=== PATIENT | female | born 1940 | race Caucasian/White ===

== ENCOUNTER → 2016-03-15 | Outpatient (CLI) | payer MEDICARE, BC ==
--- NOTE | 2016-03-18 08:40 | MM ---
Reason for exam: screening (asymptomatic). Last mammogram was performed 1 year and 1 month ago. History: Patient is postmenopausal and has history of other cancer at age 60. Family history of breast cancer in maternal cousin at age 60 and breast cancer in maternal aunt at age 60. Benign US left guided VAD of the left breast, June 23, 2008. Took estrogen for 10 years beginning at age 39. Physical Findings: A clinical breast exam by your physician is recommended on an annual basis and results should be correlated with mammographic findings. MG 3D Screening Mammo W/Cad Bilateral CC and MLO view(s) were taken. Prior study comparison: February 05, 2015, bilateral MG 3d diag mammo w/cad VIC. July 28, 2014, right breast MG diagnostic mammo RT w CAD. There are scattered fibroglandular densities. Finding: There are typically benign vascular, round calcifications in both breasts. Previous mammotome biopsy in the left breast. There is no discrete abnormality. ASSESSMENT: Benign, BI-RAD 2 RECOMMENDATION: Routine screening mammogram of both breasts in 1 year.
== END | disposition home or self-care (01) ==
LOC: RADMAMWWP 11:26
PROVIDERS: ATTEND Internal Medicine
DX: Z12.31 Encounter for screening mammogram for malignant neoplasm of breast (principal)
CPT/HCPCS: 77052; 77063; G0202

== ENCOUNTER → 2016-07-14 | Outpatient (CLI) | payer MEDICARE, BC ==
--- NOTE | 2016-07-14 20:20 | CT ---
EXAMINATION TYPE: CT soft tissue neck wo con DATE OF EXAM: 07/14/2016 7:43 PM COMPARISON: NONE HISTORY: Hypothyroid. Patient complains of dysphagia. CT DLP: 460.00 mGycm Automated exposure control for dose reduction was used. FINDINGS: Multiple axial sections were obtained from the top of the orbits to the pulmonary artery with no cont rast. There is no superior mediastinal adenopathy. There is normal branching pattern of the great vessels. There is no thyroid gland seen on the left side. There is a tiny thyroid gland remnant on the right s sarah. There is no parotid mass. The submandibular salivary glands are symmetric. There are a few anterior a nd posterior triangle cervical lymph nodes that measure up to 1 cm. There is no evidence of a pharyng eal mass. Epiglottis appears normal. There are some mild spondylotic changes in the cervical spine. S kull base is intact. There is no thickening of the prevertebral soft tissues. IMPRESSION: THERE ARE A FEW CERVICAL LYMPH NODES OF DOUBTFUL SIGNIFICANCE. SUBTOTAL THYROIDECTOMY. I DO NOT SEE A CAUSE FOR DYSPHAGIA.
== END | disposition home or self-care (01) ==
LOC: RADCTMAIN 19:25
PROVIDERS: ATTEND Internal Medicine
DX: E89.0 Postprocedural hypothyroidism (principal); N18.3 Chronic kidney disease, stage 3 (moderate); R32 Unspecified urinary incontinence; Z98.890 Other specified postprocedural states
CPT/HCPCS: 70490

== ENCOUNTER → 2017-04-11 | Outpatient (CLI) | payer MEDICARE, BC ==
--- NOTE | 2017-04-13 10:19 | MM ---
Reason for exam: screening (asymptomatic). Last mammogram was performed 1 year and 1 month ago. History: Patient is postmenopausal and has history of other cancer at age 60. Family history of breast cancer in maternal cousin at age 60 and breast cancer in maternal aunt at age 60. Benign US left guided VAD of the left breast, June 23, 2008. Took estrogen for 10 years beginning at age 39. Physical Findings: A clinical breast exam by your physician is recommended on an annual basis and results should be correlated with mammographic findings. MG 3D Screening Mammo W/Cad Bilateral CC and MLO view(s) were taken. Prior study comparison: March 15, 2016, bilateral MG 3d screening mammo w/cad. February 05, 2015, bilateral MG 3d diag mammo w/cad VIC. The breast tissue is heterogeneously dense. This may lower the sensitivity of mammography. Finding: There are typically benign vascular, dystrophic calcifications in both breasts. Previous mammotome biopsy in the left breast. There is no discrete abnormality. ASSESSMENT: Benign, BI-RAD 2 RECOMMENDATION: Routine screening mammogram of both breasts in 1 year.
== END | disposition home or self-care (01) ==
LOC: RADMAMWWP 08:42
PROVIDERS: ATTEND Internal Medicine
DX: Z12.31 Encounter for screening mammogram for malignant neoplasm of breast (principal)
CPT/HCPCS: 77063; 77067

== ENCOUNTER 2017-07-26 20:53 | Emergency (ER) | payer MEDICARE, BC ==
[2017-07-26] MEDS ORDERED: SODIUM CHLORIDE 0.9% 1,000 ML IV STA ×2 (21:14)
--- NOTE | 2017-07-26 21:18 | ED ---
Dizziness HPI - General Chief Complaint: Dizziness Stated Complaint: lightheaded Time Seen by Provider: 07/26/17 21:08 Source: patient Mode of arrival: ambulatory Limitations: no limitations - History of Present Illness Initial Comments: This 77-year-old white female presents with a complaint of some dizziness and presyncope with standing. She states that she is fine when lying but his symptoms only occur when she stands. This just started a few hours ago. She denies any other symptoms such as shortness of breath, chest pain, or fevers. She does relate that she was diagnosed with urinary tract infection and started Cipro 250 mg twice a day 2 days ago. Her urinary symptoms have resolved. She was having some mild suprapubic pain and dysuria but these symptoms are no longer present. She states that she had the episode of similar symptoms approximately 8 years ago with unknown cause. There is no leg pain or swelling. There is no abdominal pain. No other complaints or modifying factors. - Related Data Home Medications Medication Instructions Recorded Confirmed Calcium Carbonate/Vitamin D3 1 each PO DAILY 10/09/15 10/12/15 [Calcium 600-Vit D3 200 Tablet] Cholecalciferol [Vitamin D3] 2,000 unit PO DAILY 10/09/15 10/12/15 Levothyroxine Sodium [Synthroid] 25 mcg PO DAILY 10/09/15 10/12/15 Tolterodine ER [Detrol LA] 4 mg PO HS 10/09/15 10/12/15 Allergies Allergy/AdvReac Type Severity Reaction Status Date / Time Penicillins Allergy Rash/Hives Verified 07/26/17 21:00 Review of Systems ROS Statement: Those systems with pertinent positive or pertinent negative responses have been documented in the HPI. ROS Other: All systems not noted in ROS Statement are negative. Past Medical History Past Medical History: Cancer, Thyroid Disorder Additional Past Medical History / Comment(s): overactive bladder. skin ca History of Any Multi-Drug Resistant Organisms: None Reported Past Surgical History: Hysterectomy Additional Past Surgical History / Comment(s): 1/2 thyroidectomy. melanoma removed rt shoulder. rt wrist ganglion cyst removed. trigger thumb rt side. colonoscopy. BILAT CATARACT SX Past Anesthesia/Blood Transfusion Reactions: No Reported Reaction Past Psychological History: No Psychological Hx Reported Smoking Status: Never smoker Past Alcohol Use History: None Reported Past Drug Use History: None Reported - Past Family History Father Family Medical History: Cancer Additional Family Medical History / Comment(s): prostate Mother Family Medical History: Cancer Additional Family Medical History / Comment(s): colonoscopy General Exam - General Exam Comments Initial Comments: GENERAL: The patient is well nourished and well hydrated. VITAL SIGNS: Heart rate, blood pressure, respiratory rate reviewed as recorded in nurse's notes. EYES: Pupils are round and reactive. Extraocular movements are intact. No conjunctival / lid redness or swelling. ENT: No external evidence of injury, swelling, or ecchymosis. Airway is patent. Throat is clear. NECK: Nontender. No swelling or evidence of injury. No subcutaneous emphysema. Trachea is midline. No thyroid mass. HEART: Regular rate and rhythm. Good peripheral pulses. LUNGS/CHEST: Breath sounds clear and equal bilaterally. No rales, rhonchi, or wheezes. No ecchymosis, subcutaneous emphysema, or tenderness. ABDOMEN: Abdomen soft without tenderness. No palpable masses or organomegaly. No peritoneal signs. No abdominal wall swelling or ecchymosis. EXTREMITIES: No extremity tenderness. Normal muscle tone and function. No thoracolumbar tenderness. NEUROLOGIC: Sensation is grossly intact. Cranial nerve exam reveals face is symmetrical, tongue is midline, speech is clear. SKIN: No abrasions or ecchymosis is noted. No induration or masses noted. PSYCHIATRIC: Alert and oriented. Appropriate behavior and judgment. Limitations: no limitations Course Vital Signs 07/26/17 07/26/17 07/26/17 20:57 21:40 21:42 Temperature 97.5 F L Pulse Rate 78 Pulse Rate [ 77 76 Pulse Oximetery ] Respiratory 18 20 18 Rate Blood Pressure 157/75 Blood Pressure 162/78 [Right Arm Sitting] Blood Pressure 161/74 [Right Arm Standing] Blood Pressure 169/75 [Right Arm Supine] O2 Sat by Pulse 97 Oximetry 07/26/17 22:42 Temperature Pulse Rate 64 Pulse Rate [ Pulse Oximetery ] Respiratory 18 Rate Blood Pressure 147/83 Blood Pressure [Right Arm Sitting] Blood Pressure [Right Arm Standing] Blood Pressure [Right Arm Supine] O2 Sat by Pulse 97 Oximetry Medical Decision Making - Medical Decision Making The patient was seen and examined. All diagnostics were reviewed. An IV is started and she is hydrated. An EKG was done and shows a normal sinus rhythm at a rate of 78. There is no acute ST-T wave changes identified. The [place] intervals 164, QRS duration is 86, and the QTC intervals 437. The laboratory and urine are reviewed and are unremarkable. She did receive some Antivert as well. She is feeling significantly improved on recheck. The exact cause of her symptoms are not definitively determined as her orthostatic vital signs were very negative. She further does relate that the only time she was dizzy is when she stood up and the dizziness was not associated with head movement and she describes it as more of a presyncopal feeling. It is felt as though she might have been slightly dehydrated with her recent urinary tract infection. It appears that she is improved with fluids at this time. It is felt as though she stable for discharge and is instructed to drink plenty of fluids in the next several days. An ambulation trial was done and she is able to ambulate safely and states that her symptoms have significantly improved. - Lab Data Result diagrams: 07/26/17 21:24 07/26/17 21:24 Lab Results 07/26/17 07/26/17 07/26/17 Range/Units 21:24 21:24 23:02 WBC 6.2 (3.8-10.6) k/uL RBC 4.57 (3.80-5.40) m/uL Hgb 13.8 (11.4-16.0) gm/dL Hct 41.7 (34.0-46.0) % MCV 91.2 (80.0-100.0) fL MCH 30.2 (25.0-35.0) pg MCHC 33.1 (31.0-37.0) g/dL RDW 13.6 (11.5-15.5) % Plt Count 351 (150-450) k/uL Neutrophils % 44 % Lymphocytes % 41 % Monocytes % 9 % Eosinophils % 4 % Basophils % 1 % Neutrophils # 2.7 (1.3-7.7) k/uL Lymphocytes # 2.6 (1.0-4.8) k/uL Monocytes # 0.5 (0-1.0) k/uL Eosinophils # 0.2 (0-0.7) k/uL Basophils # 0.1 (0-0.2) k/uL Sodium 145 (137-145) mmol/L Potassium 4.3 (3.5-5.1) mmol/L Chloride 106 (98-107) mmol/L Carbon Dioxide 25 (22-30) mmol/L Anion Gap 14 mmol/L BUN 14 (7-17) mg/dL Creatinine 1.00 (0.52-1.04) mg/dL Est GFR (CKD-EPI)AfAm 64 (>60 ml/min/1.73 sqM) Est GFR (CKD-EPI)NonAf 55 (>60 ml/min/1.73 sqM) Glucose 82 (74-99) mg/dL Calcium 9.5 (8.4-10.2) mg/dL Total Bilirubin 0.4 (0.2-1.3) mg/dL AST 35 (14-36) U/L ALT 34 (9-52) U/L Alkaline Phosphatase 86 (38-126) U/L Total Protein 6.9 (6.3-8.2) g/dL Albumin 3.8 (3.5-5.0) g/dL Urine Color Light Yellow Urine Appearance Clear (Clear) Urine pH 5.0 (5.0-8.0) Ur Specific [place] 1.008 (1.001-1.035) Urine Protein Negative (Negative) Urine Glucose (UA) Negative (Negative) Urine Ketones Negative (Negative) Urine Blood Moderate H (Negative) Urine Nitrite Negative (Negative) Urine Bilirubin Negative (Negative) Urine Urobilinogen <2.0 (<2.0) mg/dL Ur Leukocyte Esterase Negative (Negative) Urine RBC 2 (0-5) /hpf Urine WBC 1 (0-5) /hpf Ur Squamous Epith Cells <1 (0-4) /hpf Disposition Clinical Impression: Orthostatic dizziness, Hypertension Disposition: HOME SELF-CARE Condition: Good Instructions: Dizziness (ED), Hypertension (ED) Is patient prescribed a controlled substance at d/c from ED?: No Referrals: Lei Ang MD [Primary Care Provider] - 1-2 days Time of Disposition: 00:07
[2017-07-26] MEDS ORDERED: MECLIZINE 12.5 MG TAB PO STA (21:43)
[2017-07-26 21:50] LABS: Basophils # (A) 0.1 k/uL (0-0.2); Basophils % (A) 1 %; Eosinophils # (A) 0.2 k/uL (0-0.7); Eosinophils % (A) 4 %; HCT 41.7 % (34.0-46.0); HGB 13.8 gm/dL (11.4-16.0); Lymphocytes # (A) 2.6 k/uL (1.0-4.8); Lymphocytes % (A) 41 %; MCH 30.2 pg (25.0-35.0); MCHC 33.1 g/dL (31.0-37.0); MCV 91.2 fL (80.0-100.0); Mean Platelet Volume 6.6; Monocytes # (A) 0.5 k/uL (0-1.0); Monocytes % (A) 9 %; Neutrophils # (A) 2.7 k/uL (1.3-7.7); Neutrophils % (A) 44 %; Platelet Count 351 k/uL (150-450); RBC 4.57 m/uL (3.80-5.40); RDW 13.6 % (11.5-15.5); WBC 6.2 k/uL (3.8-10.6)
[2017-07-26 22:09] LABS: Albumin 3.8 g/dL (3.5-5.0); Calcium 9.5 mg/dL (8.4-10.2); Potassium 4.3 mmol/L (3.5-5.1); Total Bilirubin 0.4 mg/dL (0.2-1.3); Total Protein 6.9 g/dL (6.3-8.2)
[2017-07-26 23:34] LABS: Appearance,Urine Clear (Clear); Bilirubin,Urine Negative (Negative); Blood,Urine Moderate (Negative); Color,Urine Light Yellow; Glucose,Urine (UA) Negative (Negative); Ketones,Urine Negative (Negative); Leukocyte Esterase,Urine Negative (Negative); Nitrite,Urine Negative (Negative); Protein,Urine Negative (Negative); RBC,Urine 2 /hpf (0-5); Specific Gravity,Urine 1.008 (1.001-1.035); Squamous Epithelial Cell,Urine <1 /hpf (0-4); Urobilinogen,Urine <2.0 mg/dL (<2.0); WBC,Urine 1 /hpf (0-5)
[2017-07-27 00:31] VITALS: BP 145/98; PULSE 75; RESP 20; TEMP 97.8
== END 2017-07-27 00:31 | disposition home or self-care (01) ==
LOC: EC 20:53
DX: I10 Essential (primary) hypertension (principal); R42 Dizziness and giddiness; E07.9 Disorder of thyroid, unspecified; N32.81 Overactive bladder; Z85.820 Personal history of malignant melanoma of skin; Z79.899 Other long term (current) drug therapy; Z88.0 Allergy status to penicillin
CPT/HCPCS: 36415; 80053; 81001; 85025; 93005; 96360; 96361; 99284

== ENCOUNTER → 2018-06-14 | Outpatient (CLI) | payer MEDICARE, BC ==
--- NOTE | 2018-06-15 09:03 | MM ---
Reason for exam: screening (asymptomatic). Last mammogram was performed 1 year and 2 months ago. History: Patient is postmenopausal and has history of other cancer at age 60. Family history of breast cancer in maternal cousin at age 60 and breast cancer in maternal aunt at age 60. Benign US left guided VAD of the left breast, June 23, 2008. Took estrogen for 10 years beginning at age 39. Physical Findings: A clinical breast exam by your physician is recommended on an annual basis and results should be correlated with mammographic findings. MG 3D Screening Mammo W/Cad Bilateral CC and MLO view(s) were taken. Prior study comparison: April 11, 2017, bilateral MG 3d screening mammo w/cad. March 15, 2016, bilateral MG 3d screening mammo w/cad. The breast tissue is heterogeneously dense. This may lower the sensitivity of mammography. Stable benign calcifications. New nodule upper outer right breast posterior third position. ASSESSMENT: Incomplete: need additional imaging evaluation, BI-RAD 0 RECOMMENDATION: Special view mammogram of the right breast. If lesion persists on supplemental views, image directed ultrasound is recommended. [facility] will attempt to contact patient to return for supplemental views and ultrasound if indicated.
== END | disposition home or self-care (01) ==
LOC: RADMAMWWP 11:10
PROVIDERS: ATTEND Internal Medicine
DX: Z12.31 Encounter for screening mammogram for malignant neoplasm of breast (principal)
CPT/HCPCS: 77063; 77067

== ENCOUNTER → 2018-06-17 | Outpatient (CLI) | payer MEDICARE, BC ==
--- NOTE | 2018-06-18 13:43 | MM ---
Reason for exam: additional evaluation requested from abnormal screening. Last mammogram was performed less than 1 month ago. History: Patient is postmenopausal and has history of other cancer at age 60. Family history of breast cancer in maternal cousin at age 60 and breast cancer in maternal aunt at age 60. Benign US left guided VAD of the left breast, June 23, 2008. Took estrogen for 10 years beginning at age 39. Physical Findings: Nurse did not find any significant physical abnormalities on exam. MG 3D Work Up W/Cad RT Spot compression CC, spot compression MLO, and LM view(s) were taken of the right breast. Prior study comparison: June 14, 2018, bilateral MG 3d screening mammo w/cad. April 11, 2017, bilateral MG 3d screening mammo w/cad. There are scattered fibroglandular densities. Finding: There is a 4 mm equal density (isodense) mass in the right breast. These results were verbally communicated with the patient and result sheet given to the patient on 06/17/18. ASSESSMENT: Incomplete: need additional imaging evaluation, BI-RAD 0 RECOMMENDATION: Ultrasound of the right breast.
--- NOTE | 2018-06-18 13:46 | USB ---
Reason for exam: additional evaluation requested from abnormal screening. History: Patient is postmenopausal and has history of other cancer at age 60. Family history of breast cancer in maternal cousin at age 60 and breast cancer in maternal aunt at age 60. Benign US left guided VAD of the left breast, June 23, 2008. Took estrogen for 10 years beginning at age 39. US Breast Workup Limited RT Right limited breast ultrasound including focal area of concern, retroareolar and axilla demonstrates a 0.7 x 0.2 x 0.5cm cystic lesion at 11 o'clock nipple and a 0.5 x 0.4 x 0.5cm solid lesion at 1 o'clock for which a biopsy is recommended. These results were verbally communicated with the patient and result sheet given to the patient on 06/17/18. ASSESSMENT: Suspicious, BI-RAD 4 RECOMMENDATION: Ultrasound core biopsy of the right breast. Called Dr. Ang with mammographic findings and has scheduled an appointment for the patient for 07/02/18 at 12:[address] Nolen. Biopsy scheduled for 06/28/18 at 10:00. PRELIMINARY REPORT CALLED AND FAXED TO DR. NOLEN ON 06/18/18.
== END | disposition home or self-care (01) ==
LOC: RADMAMWWP 13:33
PROVIDERS: ATTEND Internal Medicine
DX: R92.8 Other abnormal and inconclusive findings on diagnostic imaging of breast (principal)
CPT/HCPCS: 77065; 76642; G0279; 77061

== ENCOUNTER → 2018-06-28 | Day surgery (SDC) | payer MEDICARE, BC ==
[2018-06-28 09:32] VITALS: RESP 18; TEMP 98; BMI 27.0
[2018-06-28 14:29] VITALS: BP 128/78; PULSE 80
--- NOTE | 2018-06-28 16:28 | USB ---
EXAMINATION TYPE: US biopsy breast VAD RT DATE OF EXAM: 06/28/2018 CLINICAL HISTORY: R92.8 Abnormal Mammogram. TECHNIQUE: Ultrasound guided core biopsy of right breast. COMPARISON: NONE FINDINGS: The procedure of ultrasound guided core biopsy was explained to the patient. Benefits, alt ernatives, and risks were discussed. An informed consent was then obtained. A timeout was performed. The patient was placed in supine positioning for imaging and for the procedure. The overlying skin w as prepped and draped in usual sterile fashion. Lidocaine buffered with bicarbonate was used as anes thetic into the skin and subcutaneous tissue up to area of concern in the right breast. A maximo was m yudith with surgical scalpel. Under ultrasound guidance, a 12-gauge vacuum assisted biopsy gun device was used to obtain 5 core rudy ples. Following this, a biopsy clip was left in lesion. The patient tolerated the procedure well without any immediate complication. The patient was kept in the radiology department for short stay after the procedure and then discharged home in stable condi tion. Post procedure mammogram was obtained. A surgical marker is within the posterior right 12:00 on the m ammogram. IMPRESSION: 1. Successful ultrasound-guided core biopsy right breast. Recommendations: 1. Recommendations are pending pathology results.
== END ==
LOC: RADUSWWP 09:04
PROVIDERS: ATTEND Internal Medicine
DX: N64.89 Other specified disorders of breast (principal)
CPT/HCPCS: 88305; 88342; 88341; 77065; 19083; A4648; J2001

== ENCOUNTER → 2018-07-02 | Outpatient (CLI) | payer MEDICARE, BC ==
[2018-07-02 14:12] VITALS: BP 176/74; PULSE 92; RESP 16; TEMP 97.7; BMI 27.4
--- NOTE | 2018-07-02 14:47 | P.GSHP ---
History of Present Illness H&P Date: 07/02/18 Chief Complaint: ultrasound biopsy 78-year-old white female who presents for evaluation following an ultrasound core biopsy of an area identified in the right breast. The patient had a routine screening mammogram performed on 4818. On this film there was a new nodular upper outer right breast nodule identified. She was recommended to undergo additional radiographs of this site and following additional radiographs and an ultrasound and ultrasound-guided core biopsy was recommended. The ultrasound core biopsy was performed and [id number]. Results of this revealed a microscopic focus of atypical ductal epithelium pending consultation at [facility]. The patient does not feel anything of concern in her breast. She has no history of any nipple discharge or skin changes of concern. She has no history of any trauma or infection in her breast. She had a left breast biopsy in the past which was benign. Family History; maternal aunt: breast cancer maternal cousin: breast cancer mother: colon cancer father: prostate cancer patient: melanoma Hormonal History: menarche: 13 : breast fed: none, first born at 19 menopause: hysterectomy at 46, took ovaries, done for bleeding BCP: none hormones: 10 years after hysterectomy (estrogen) Past Surgical History: 1. melanoma on back 2. hysterectomy 3. thyroid resection 4. thumb surgery Past Medical History: none Social History: smoke: none alcohol: none drugs: none - Constitutional Constitutional: Denies chills, Denies fever - EENT Eyes: denies blurred vision, denies pain Ears: deny: decreased hearing, tinnitus Ears, nose, mouth and throat: Denies headache, Denies sore throat - Breasts Breasts: bilateral: as per HPI - Cardiovascular Cardiovascular: Denies chest pain, Denies shortness of breath - Respiratory Respiratory: Denies cough, Denies 7 - Gastrointestinal Comment: colonoscopy done last year [place] Gastrointestinal: Denies abdominal pain, Denies diarrhea, Denies nausea, Denies vomiting - Genitourinary (Female) Genitourinary: Denies dysuria, Denies hematuria - Menstruation Menstruation: Reports post hysterectomy - Musculoskeletal Musculoskeletal: Denies myalgias - Integumentary Integumentary: Denies pruritus, Denies rash - Neurological Neurological: Denies numbness, Denies weakness - Psychiatric Psychiatric: Denies anxiety, Denies depression - Endocrine Endocrine: Denies fatigue, Denies weight change - Hematologic/Lymphatic Comment: none - Allergic/Immunologic Allergic/Immunologic: Reports seasonal allergies Past Medical History Past Medical History: Cancer, Thyroid Disorder Additional Past Medical History / Comment(s): overactive bladder. skin ca History of Any Multi-Drug Resistant Organisms: None Reported Past Surgical History: Hysterectomy Additional Past Surgical History / Comment(s): 1/2 thyroidectomy. melanoma removed rt shoulder. rt wrist ganglion cyst removed. trigger thumb rt side. colonoscopy. BILAT CATARACT SX Past Anesthesia/Blood Transfusion Reactions: No Reported Reaction Past Psychological History: No Psychological Hx Reported Smoking Status: Never smoker Past Alcohol Use History: None Reported Past Drug Use History: None Reported - Past Family History Father Family Medical History: Cancer Additional Family Medical History / Comment(s): prostate Mother Family Medical History: Cancer Additional Family Medical History / Comment(s): colonoscopy. colon cancer Medications and Allergies Home Medications Medication Instructions Recorded Confirmed Type Calcium Carbonate/Vitamin D3 1 each PO DAILY 10/09/15 07/02/18 History [Calcium 600-Vit D3 200 Tablet] Cholecalciferol [Vitamin D3] 2,000 unit PO DAILY 10/09/15 07/02/18 History Levothyroxine Sodium [Synthroid] 25 mcg PO DAILY 10/09/15 07/02/18 History Tolterodine ER [Detrol LA] 4 mg PO HS 10/09/15 07/02/18 History Cetirizine HCl [Zyrtec] 10 mg PO DAILY 07/02/18 07/02/18 History Allergies Allergy/AdvReac Type Severity Reaction Status Date / Time Penicillins Allergy Rash/Hives Verified 07/02/18 14:12 aspirin AdvReac Mild Nausea Verified 07/02/18 14:12 monosodium glutamate [MSG] AdvReac Unknown Unverified 07/02/18 14:13 Surgical - Exam Vital Signs Temp Pulse Resp BP Pulse Ox 97.7 F 92 16 176/74 97 07/02/18 14:05 07/02/18 14:05 07/02/18 14:05 07/02/18 14:05 07/02/18 14:05 BMI 27.4 - General well developed, well nourished, no distress - Eyes normal ocular movement - ENT no hearing loss, no congestion - Neck no masses, trachea midline - Respiratory normal respiratory effort, clear to auscultation - Cardiovascular Rhythm: regular Heart Sounds: normal: S1, S2 - Abdomen Abdomen: soft, non tender, no guarding, no rigid, no rebound - Integumentary normal turgor - Neurologic no disoriented, no combative - Musculoskeletal normal gait - Psychiatric oriented to time, oriented to person, oriented to place, speech is normal, memory intact breast exam: right breast: multipositional exam no dominate masses or nodules of concern, echymosis at the site of biopsy no evidence of infection Right Axilla: no adenopathy of concern left breast: multipositional exam no dominate masses or nodules of concern, fibrocystic changes left axilla: no adenopathy of concern BRA 36B Results mammogram, ultrasound, and pathology results reviewed Assessment and Plan Assessment: Impression: 1. abnormal mammogram 2. atypical lesion on biopsy 3. history of melanoma 4. family history of cnacer 5. family history of breast cancer We have discussed the need for at minimum needle localization anf open biopsy. If the pathology from [facility] comes back with a diagnosis of cancer, we will need to do a sentinel node biopsy. The patient understands and we are awaiting the results of pathology form [facility]. Plan: 1. await the pathology from [facility] 2. needle localization and resection/ extent of surgery dependant on above CC: Dr. Ang
== END ==
LOC: WWCWWP 13:56
PROVIDERS: ATTEND Surgery
DX: Z53.9 Procedure and treatment not carried out, unspecified reason (principal)

== ENCOUNTER → 2018-07-14 | Outpatient (CLI) | payer MEDICARE, BC ==
[2018-07-14 14:10] VITALS: BP 176/78; PULSE 83; RESP 16; TEMP 97.1; BMI 27.4
--- NOTE | 2018-07-14 14:31 | P.PN ---
Subjective Progress Note Date: 07/14/18 Principal diagnosis: Estelle is a 78-year-old white female who underwent an ultrasound core biopsy and an area identified in her right breast that was of concern. 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 The lesion was noted to be ER/IN negative and HER-2/yudith negative. It was an intermediate grade lesion. Family history: Paternal aunt: Breast cancer Maternal cousin: Breast cancer Mother: Colon cancer Father: Prostate cancer Patient: Melanoma Hormonal history: Menarche: 13 Pregnancies: breast fed, negative First child born at 19 Menopause: Hysterectomy of 46 to close the stump for bleeding Patient control pills: Negative Hormones: 10 years after hysterectomy took estrogen Past surgical history: 1. Melanoma on back 2. Hysterectomy 3. Thyroid resection 4. Thumb surgery Past medical history: Negative Social history: Smoke: Negative Alcohol: Negative Drugs: Negative Review of systems: Constitutional: Negative HEENT: Negative Past: As per HPI Cardiovascular: Negative Mr.: Negative GI: Negative : Status post hysterectomy Musculoskeletal: Negative Neurologic: Negative Psychiatric: Negative Endocrine: Thyroid resection Objective - Constitutional Constitutional Comment(s): BMI 27.4 General appearance: Present: average body habitus - EENT Eyes: Present: EOMI ENT: Present: hearing grossly normal - Neck Neck: Present: normal ROM - Respiratory Respiratory: bilateral: CTA - Cardiovascular Rhythm: regular Heart sounds: normal: S1, S2 - Integumentary Integumentary: Present: normal - Musculoskeletal Musculoskeletal: Present: gait normal - Psychiatric Psychiatric: Present: A&O x's 3, appropriate affect, intact judgment & insight - Additional findings Additional findings: Breast examination: right breast Core biopsy site clean and dry no evidence of hematoma, no evidence of infection, mild ecchymosis Assessment and Plan Assessment: Impression: 1. Stage I a T1 N0 M0 ER/IN negative and HER-2 negative created intermediate right breast cancer 2. History of melanoma 3. History of thyroid resection 4. Family history of cancer Have had a long discussion with the patient regarding her pathology results. We have talked about surgical options including lumpectomy plus radiation, mastectomy, sentinel node biopsy possible axillary node dissection. At this time the patient does not want to undergo a mastectomy. We have talked about possibility of onco-plastic surgery and the patient is more concerned about symmetry then hiding her scar. She is not interested in a mastopexy at this time. We have discussed risks and benefits which include bleeding infection reaction to the anesthetic, possible positive margins which would require repeat excision and possible positive sentinel node which may require repeat surgery for an axillary dissection. She understands that if we knew that noted positive at the time of surgery we would proceed with an axillary dissection at that time. Understanding the risks and benefits and wishes to proceed. Plan: 1. Medical clearance 2. Right breast needle localization lumpectomy, sentinel node injection and sentinel node biopsy, possible axillary node dissection Cc: Dr. Ang
== END | disposition home or self-care (01) ==
LOC: WWCWWP 13:11
PROVIDERS: ATTEND Surgery
DX: Z53.9 Procedure and treatment not carried out, unspecified reason (principal)

== ENCOUNTER 2018-08-17 09:06 | Day surgery (SDC) | payer MEDICARE, BC ==
[2018-08-12 18:02] VITALS: BMI 28.0
[~2018-08-17 09:06] MED LIST: DEXAMETHASONE SOD PHOSPHATE 10 MG/ML 1 ML VIAL IV ONE; HEPARIN SODIUM,PORCINE 5,000 UNIT/ML 1 ML VIAL SQ ONE; HYDROmorphone 0.5 MG/0.5 ML SYRINGE IVP PRN; LACTATED RINGERS 1,000 ML IV SCH; MIDAZOLAM 2 MG/2 ML VIAL IV PRN; Pre Op ABX Message 1 EACH MISC MISCELLANE ONE
[2018-08-17] MEDS ORDERED: LIDOCAINE 1% 20 ML VIAL (10MG/ML) FOR IV START INTRADERMA ONE ×2 (09:44)
[2018-08-17] MEDS ORDERED: LACTATED RINGERS 1,000 ML IV ONE ×2 (09:45→13:48)
[2018-08-17] MEDS: ONDANSETRON 4 MG/2 ML VIAL IVP ONE ×2 (09:45→14:57)
[2018-08-17] MEDS ORDERED: ALPRAZolam 0.25 MG TAB PO ONE (09:45)
[2018-08-17 10:19] VITALS: RESP 16
[2018-08-17] MEDS ORDERED: LIDOCAINE 1% INJ 10MG/ML (20 ML MDV) SQ ONE (10:21)
--- NOTE | 2018-08-17 11:25 | NM ---
EXAMINATION TYPE: NM sentinel node injection DATE OF EXAM: 08/17/2018 COMPARISON: 06/28/2018 HISTORY: Right breast cancer with need for sentinel lymph node injection. TECHNIQUE AND FINDINGS: The procedure of sentinel lymph node injection was explained to the patient. The benefits, alternatives, and risks were discussed. An informed consent was then obtained. Overlying skin is cleaned with sterile alcohol. Following this, 483 uCi Tc99m Tilmanocept was inject ed in the upper outer aspect of the nipple intradermally. The patient tolerated the procedure well without any immediate complication. The patient was kept in the radiology department for short stay after the procedure and then taken to surgery for surgical p rocedure what is presumed intraoperative gamma probe will be used for sentinel lymph node detection. IMPRESSION: Right breast radiotracer injection for sentinel node localization as above.
[2018-08-17] MEDS ORDERED: fentaNYL (PF) 50 MCG/ML 2 ML AMP ONE (11:49)
[2018-08-17] MEDS ORDERED: PROPOFOL 10 MG/ML 20 ML VIAL IV ONE (11:49)
[2018-08-17] MEDS ORDERED: SUCCINYLCHOLINE CHLORIDE 100 MG/5 ML SYR IV ONE (11:49)
[2018-08-17] MEDS ORDERED: LIDOCAINE 1% INJ 10MG/ML (20 ML MDV) ONE (11:49)
[2018-08-17] MEDS ORDERED: MIDAZOLAM 2 MG/2 ML VIAL ONE (11:49)
[2018-08-17] MEDS ORDERED: HEPARIN SODIUM,PORCINE 5,000 UNIT/ML 1 ML VIAL SQ ONE (12:01)
--- NOTE | 2018-08-17 12:04 | P.NAPBC ---
NAPBC Queries - NAPBC Queries Was patient's case review presented at [facility] tumor board? If no, comment.: Yes Was patient's pathology reviewed at [facility]? If no, comment.: Yes Was breast conservation surgery offered? If no, comment.: Yes Was sentinel node biopsy offered? If no, comment.: Yes Was diagnosis confirmed by percutaneous core biopsy? If no, comment.: Yes Is patient mastectomy patient?: No Was a preop referral to reconstructive surgeon offered?: No Clinical Stage: Stage 1A
--- NOTE | 2018-08-17 13:51 | MM ---
EXAMINATION TYPE: MG surgical specimen RT, MG pre op needle loc RT DATE OF EXAM: 08/17/2018 COMPARISON: 08/17/2018 CLINICAL HISTORY: Right needle localization of a biopsy proven right breast carcinoma. TECHNIQUE: Needle localization with wire placement and surgical excision of area of concern in the right breast. FINDINGS: The procedure of needle localization with wire placement and than surgical excision was explained to the patient. Benefits, alternatives, and risks were discussed. An informed consent was then obtained. Preprocedural timeout was performed. The shortest pathway for procedure was chosen. Shortest pathway was craniocaudal from above approach. The overlying skin was prepped and draped in usual sterile fashion. Lidocaine buffered with bicarbonate was used as anesthetic into the skin and subcutaneous tissue up to the level of area of concern. A 7 cm needle was used. It was placed via a craniocaudal from above approach under mammographic guidance. Subsequent 90 degrees mammogram show the needle to be in satisfactory position relative to the targeted area. At this point, wire was placed and the needle was withdrawn. The wire was fixed to patient's skin. Images were marked for surgeon. The patient tolerated the procedure well without any immediate complication. The patient was kept in the radiology department for short stay after the procedure and then taken to surgery for surgical excision. Targeted mass, biopsy marker and wire are identified in specimen mammogram. These are most cranial aspect of the edge of the sample. This was communicated with the surgeon however no additional superior tissue was left to resect. The patient was kept in hospital for short stay after the procedure and then discharged home in stable condition. IMPRESSION: Successful, uncomplicated needle localization with wire placement and surgical excision of the targeted mass, biopsy marker, and wire in the right breast, full pathology results to follow. Pathology Results: Malignant A. RIGHT AXILLARY SENTINEL LYMPH NODE, BIOPSY: One lymph node negative for metastatic adenocarcinoma. Negative for metastatic adenocarcinoma by H+E as well as appropriately controlled GRACE and Cytokeratin 7 stained sections. B. RIGHT BREAST, NEEDLE LOCALIZED LUMPECTOMY: 0.7 x 0.6 x 0.5 cm moderately differentiated infiltrating duct carcinoma with intratumoral mineralizations extending to within 0.75 mm of the green/yellow inked margin of excision. Surrounding breast parenchyma: focal fibroadenomatous change. See Surgical Pathology Cancer Case Summary. C. NEW SUPERIOR MARGIN OF RIGHT BREAST LUMPECTOMY: Benign breast parenchyma - negative for adenocarcinoma. Recommendation Surgical consult of the right breast. (continued surgical management) MAGALIS
--- NOTE | 2018-08-17 14:20 | P.OP ---
Date of Procedure: 08/17/18 Preoperative Diagnosis: rt breast microinvasive carcinoma Postoperative Diagnosis: same Procedure(s) Performed: Right breast sentinel node biopsy, crescent mastopexy with lumpectomy, onco- plastic tissue rearrangement, Anesthesia: GETA Surgeon: Shyla Peña Estimated Blood Loss (ml): 50 IV fluids (ml): 750 Pathology: other (sentinal node, breast tissue) Condition: stable Disposition: same day Indications for Procedure: Microinvasive tumor right breast Operative Findings: Fibrofatty breast tissue and the external Description of Procedure: The patient was taken to the operating room and following induction of general anesthesia the right breast and axilla were prepped and draped in a sterile fashion. The neoprobe was used to identify the area of greatest radioactivity in the axilla was identified. An incision was made over this site. Careful dissection into the axilla was performed using the electrocautery device as well as the Harmonic scalpel. The area of greatest radioactivity was identified. This was carefully resected using the Harmonic scalpel. The 10 second radioactive count on this lymph node was approximately 15,421. The background 10 second count in the axilla was 26. The axilla was examined for hemostasis. It was irrigated and the small vessels were cauterized. After assured that hemostasis was the skin was closed using a 4-0 Monocryl. The lymph node was sent for frozen section evaluation as it was clinically nonsuspicious, was sent for permanent section evaluation. The breast was then approached. A crescent incision was made superior to the areola. The tissue was scored and the area of the crescent was de- epithelialized. The incision was made into the breast tissue near the superior margin of the crescent. This was dissected between the breast and subcutaneous tissue to the area of the wire localization needle. The wire was grasped and brought into the incision. A pillar of tissue was excised being careful to excise the area where the abnormality was located. Radiograph of the specimen revealed the area of concern had been removed however, it was close superior. Superior dissection had been performed up to the shaft of the needle where the needle entered the skin however, additional tissue was obtained and painted for orientation. Prior to sending the specimen to radiology it was painted for orientation. Posterior dissection was performed down to the pectoralis muscle. The breast tissue columns were freed from the subcutaneous tissue anteriorly and the chest wall inferiorly. Approximately 30 mL of tissue was mobilized. These areas were brought together using 3-0 Vicryl suture. Prior to this the area of resection was marked with titanium clips. Also prior to closing the defect we assured that hemostasis was attained. The wound was well irrigated. Following this the subcutaneous tissues were closed with a 3-0 Vicryl suture. This was followed by closure of the skin with 4-0 Monocryl. A 5-0 nylon suture was placed. The patient tolerated the procedure in stable condition. All instrument and sponge counts were correct at the end of the case.
--- NOTE | 2018-08-17 14:22 | P.DS ---
Providers Attending physician: Shyla Peña Primary care physician: Lei Ang Plan - Discharge Summary Discharge Rx Participant: Yes New Discharge Prescriptions: No Action Levothyroxine Sodium [Synthroid] 25 mcg PO DAILY Cholecalciferol [Vitamin D3] 2,000 unit PO DAILY Tolterodine ER [Detrol LA] 4 mg PO HS Calcium Carbonate/Vitamin D3 [Calcium 600-Vit D3 200 Tablet] 1 each PO DAILY Cetirizine HCl [Zyrtec] 10 mg PO DAILY Discharge Medication List Calcium Carbonate/Vitamin D3 [Calcium 600-Vit D3 200 Tablet] 1 each PO DAILY 10/09/15 [History] Cholecalciferol [Vitamin D3] 2,000 unit PO DAILY 10/09/15 [History] Levothyroxine Sodium [Synthroid] 25 mcg PO DAILY 10/09/15 [History] Tolterodine ER [Detrol LA] 4 mg PO HS 10/09/15 [History] Cetirizine HCl [Zyrtec] 10 mg PO DAILY 07/02/18 [History] Follow up Appointment(s)/Referral(s): Shyla Pñea MD [STAFF PHYSICIAN] - 1 Week Activity/Diet/Wound Care/Special Instructions: Wear bra at all times Do not drive until seen by Dr. [place] May shower after 48 hours Discharge Disposition: HOME SELF-CARE
[2018-08-17 14:27] VITALS: TEMP 99.2
[2018-08-17] MEDS ORDERED: Acetaminophen-Codeine 300-30mg TAB PO ONE (15:40)
[2018-08-17 16:06] VITALS: BP 133/75; PULSE 84
== END 2018-08-17 16:27 | disposition home or self-care (01) ==
LOC: RADMAMWWP 09:06
PROVIDERS: ATTEND Surgery
DX: C50.811 Malignant neoplasm of overlapping sites of right female breast (principal); E89.0 Postprocedural hypothyroidism; N32.81 Overactive bladder; Z85.820 Personal history of malignant melanoma of skin; Z90.710 Acquired absence of both cervix and uterus; Z79.890 Hormone replacement therapy; Z79.899 Other long term (current) drug therapy; Z88.6 Allergy status to analgesic agent; Z88.0 Allergy status to penicillin; Z88.8 Allergy status to other drugs, medicaments and biological substances; Z80.42 Family history of malignant neoplasm of prostate; Z80.0 Family history of malignant neoplasm of digestive organs
CPT/HCPCS: 19301; 38525; 19281; 38792; 88342; 88307; 88341; 76098; A9520; J2250; J1644; J1100; J2405; J2001; J3010; J0330; J2704; J1170

== ENCOUNTER → 2018-08-27 | Outpatient (CLI) | payer MEDICARE, BC ==
[2018-08-27 12:45] VITALS: BP 135/79; PULSE 83; RESP 18; TEMP 98.2; BMI 27.8
--- NOTE | 2018-08-27 13:11 | P.PN ---
Subjective Progress Note Date: 08/27/18 Principal diagnosis: Estelle is a 78-year-old white female status post right breast lumpectomy and sentinel node biopsy. Pathology revealed a 0.7 cm infiltrating ductal carcinoma, sentinel node was negative, this is a triple negative lesion which is grade 2. Stage [place] [address] right breast lumpectomy and sentinel node biopsy. She is a stage I a lesion. Patient has no complaints at this time. She is doing well. Objective - Vital Signs Vital signs: Vital Signs Temp 98.2 F 08/27/18 12:43 Pulse 83 08/27/18 12:43 Resp 18 08/27/18 12:43 BP 135/79 08/27/18 12:43 Pulse Ox 96 08/27/18 12:43 Intake & Output 08/26/18 08/27/18 08/27/18 18:59 06:59 18:59 Weight 68.946 kg - Constitutional General appearance: Present: average body habitus - EENT Eyes: Present: EOMI ENT: Present: hearing grossly normal - Respiratory Respiratory: bilateral: CTA - Cardiovascular Rhythm: regular Heart sounds: normal: S1, S2 - Integumentary Integumentary Comment(s): Incisions clean and dry, both axillary and periareolar No evidence of any infection - Musculoskeletal Musculoskeletal: Present: gait normal - Psychiatric Psychiatric: Present: A&O x's 3, appropriate affect, intact judgment & insight - Additional findings Additional findings: Incision clean and dry axilla and periareolar Assessment and Plan Assessment: Impression: 1. Patient status post right breast lumpectomy and sentinel node biopsy. [place] mastopexy incision, stage IA breast cancer 2. Margins negative, lymph node negative 3. Patient no complaints postoperative Plan: 1. Suture removal 2. Follow-up medical oncology and radiation oncology 3. Follow-up here in 3 months Cc: Dr. Ang
== END | disposition home or self-care (01) ==
LOC: WWCWWP 12:17
PROVIDERS: ATTEND Surgery
DX: Z53.9 Procedure and treatment not carried out, unspecified reason (principal)

== ENCOUNTER → 2018-11-25 | Outpatient (CLI) | payer MEDICARE, BC ==
[2018-11-25 09:51] VITALS: BP 125/80; PULSE 84; RESP 18; TEMP 97.7; BMI 27.4
--- NOTE | 2018-11-25 10:11 | P.PN ---
Subjective Progress Note Date: 11/25/18 Principal diagnosis: Stage 1A right breast cancer Estelle is a 78-year-old white female status post right breast lumpectomy and sentinel node biopsy. Pathology revealed a 0.7 cm infiltrating ductal carcinoma, sentinel node was negative, this is a triple negative lesion which is grade 2. Stage [place] [id number] right breast lumpectomy and sentinel node biopsy. She is a stage IA lesion. Patient has no complaints at this time. She did not have any chemotherapy or hormonal therapy. She had 15 radiation treatments, her last treatment was October. The patient has no complaints at this time she is doing well. She will be due for right breast repeat mammogram 6 months from the time she finished radiation which will be approximately April 2019. Family history: Paternal aunt: Breast cancer Maternal cousin: Breast cancer Mother: Colon cancer Father: Prostate cancer Patient: Melanoma Hormonal history: Menarche: 13 Pregnancies: breast fed: Negative, first child born at 19 Menopause: Hysterectomy at 46 for bleeding control pills: Negative Hormones: 10 years Past surgical history: 1. Melanoma BX 2. Hysterectomy 3. Dilated resection 4. Thumb surgery 5. thyroid resection, enlarged and causing difficulty swallowing, 1/2 and isthmus removed 20 years ago Medical history: hypothyroid Social history: Smoke: Negative Alcohol: Negative Drugs: Negative Review of systems: Constitutional: Negative HEENT: thyroid resection Cardiovascular: Negative GI: Negative : Status post hysterectomy. Musculoskeletal: Negative Neurologic: Negative Psychiatric: Negative Endocrine: Thyroid resection Hematologic: Negative Integument: Prior melanoma Objective - Vital Signs Vital signs: Vital Signs Temp 97.7 F 11/25/18 09:48 Pulse 84 11/25/18 09:48 Resp 18 11/25/18 09:48 BP 125/80 11/25/18 09:48 Pulse Ox 96 11/25/18 09:48 Intake & Output 11/24/18 11/25/18 11/25/18 18:59 06:59 18:59 Weight 68.039 kg - Exam BMI 27.4 - Constitutional General appearance: Present: average body habitus - EENT Eyes: Present: EOMI ENT: Present: hearing grossly normal - Neck Neck: Present: normal ROM - Respiratory Respiratory: bilateral: CTA - Cardiovascular Rhythm: regular Heart sounds: normal: S1, S2 - Gastrointestinal General gastrointestinal: Present: soft - Integumentary Integumentary: Present: normal turgor - Musculoskeletal Musculoskeletal: Present: gait normal - Psychiatric Psychiatric: Present: A&O x's 3, appropriate affect, intact judgment & insight - Additional findings Additional findings: Breast examination: Right breast: Multiple positional exam no dominant masses or nodules of concern, the Biozorb is palpable, there is slight asymmetry of the breasts secondary to the lumpectomy radiation therapy in the location of the nipple areolar complex is less ptotic than on the left Right axilla: No adenopathy of concern Left breast: Multiple positional exam no dominant masses or nodules of concern Left axilla: No adenopathy of concern There is slight asymmetry of the breast with the right nipple areolar complex being slightly less ptotic than on the left we have talked regarding symmetry and the patient does not wish any symmetry procedures to be done at this time Assessment and Plan Assessment: Impression: 1. Stage IA right breast cancer, status post lumpectomy and radiation therapy or hormonal therapy 2. Fibrocystic breast changes in the left breast 3. Family history of cancer 4. Family history of breast cancer 5. Personal history of melanoma 6. Hypothyroid 7. Slight asymmetry in the past patient is not interested in the symmetry procedure at this time Plan: 1. Follow up examination in 3 months time 2. Right breast mammogram in April 2019 with repeat exam at that time 3. Medical management of any medical conditions 4. Patient will call if she has any questions or concerns sooner Cc: Dr. Ang
== END ==
LOC: WWCWWP 09:39
PROVIDERS: ATTEND Surgery
DX: Z53.9 Procedure and treatment not carried out, unspecified reason (principal)

== ENCOUNTER → 2019-04-14 | Outpatient (CLI) | payer MEDICARE, BC ==
--- NOTE | 2019-04-14 12:00 | MM ---
Reason for exam: follow-up at short interval from prior study. Last mammogram was performed 9 months ago. History: Patient is postmenopausal, has history of breast cancer at age 78, and has history of other cancer at age 60. Family history of breast cancer in maternal cousin at age 60 and breast cancer in maternal aunt at age 60. Malignant MG pre op needle loc RT of the right breast, August 17, 2018. Lumpectomy of the right breast, August 17, 2018. Malignant US biopsy breast VAD RT of the right breast, June 28, 2018. Benign US left guided VAD of the left breast, June 23, 2008. Took estrogen for 10 years beginning at age 39. Physical Findings: Nurse Summary: 2cm nodule in the right brast at 12-1 o'clock (nurse TM). MG 3D Diag Mammo W/Cad RT CC, MLO, LM, and XCCL view(s) were taken of the right breast. Prior study comparison: June 28, 2018, right breast MG diagnostic mammo RT wo CAD. June 17, 2018, right breast MG 3d work up w/cad RT. The breast tissue is heterogeneously dense. This may lower the sensitivity of mammography. Benign appearing calcifications in the right breast. Post therapy change on the right. These results were verbally communicated with the patient and result sheet given to the patient on 04/14/19. ASSESSMENT: Benign, BI-RAD 2 RECOMMENDATION: Follow-up diagnostic mammogram of both breasts in 2 months. Back on schedule for June 2019.
== END | disposition home or self-care (01) ==
LOC: RADMAMWWP 10:08
PROVIDERS: ATTEND Surgery
DX: Z08 Encounter for follow-up examination after completed treatment for malignant neoplasm (principal); Z85.3 Personal history of malignant neoplasm of breast
CPT/HCPCS: 77065; G0279; 77061

== ENCOUNTER → 2019-04-14 | Outpatient (CLI) | payer MEDICARE, BC ==
--- NOTE | 2019-04-14 12:24 | BD ---
EXAMINATION TYPE: Axial Bone Density DATE OF EXAM: 04/14/2019 COMPARISON: 02.05.2015 CLINICAL HISTORY: 79 YR OLD FEMALE....ICD-10 CODE: M89.9 DISORDER OF BONE Height: 61.5 Weight: 162 FRAX RISK QUESTIONS: Family History (Parent hip fracture): YES Secondary Osteoporosis: YES 3. Menopause before 45: YES, 40 RISK FACTORS HISTORY OF: Family History of Osteoporosis: YES, GRANDMOTHER, WITH HIP FX Postmenopausal woman: YES, ABOUT 40 YRS OLD WITH HER HYST Take estrogen and/or progesterone medications: YES, IN THE PAST FOR ABOUT 10 YRS Hyperparathyroidism: NO Adrenal Insufficiency: NO MEDICATIONS: Thyroid Medications: YES, SYNTHROID, FOR ABOUT 10+ YRS Additional Medications: HX OF RADIATION, BR CA RT BREAST, VIT D AND CALCIUM, Additional History: PARTIAL THYROIDECTOMY, HX OF BREAST CA LAST YR, EXAM MEASUREMENTS: Bone mineral densitometry was performed using the [employer] System. Bone mineral density as measured about the Lumbar spine is: ----- L1-L4(G/cm2): 1.242 T Score Values are as follows: ----- L1: -0.1 ----- L2: -0.3 ----- L3: 0.4 ----- L4: 1.7 ----- L1-L4: 0.5 Bone mineral density has: Increased 7.5% since study of: 02.05.2015 Bone mineral density about the R hip (g/cm2): 0.888 Bone mineral density about the L hip (g/cm2): 0.898 T Score values are as follows: -----R Neck: -1.5 -----L Neck: -0.8 -----R Total: -0.9 -----L Total: -0.8 Bone mineral density has: Decreased -3.8% since study of: 02.05.2015 FRAX%s: THERE IS A 20.8% CHANCE FOR A MAJOR OSTEOPOROTIC FX AND A 11.0% FOR HIP.....PROBABILITY FOR FX IN 10 YRS TIME IMPRESSION: Osteopenia (T Score between -2.5 and -1). There is slightly increased risk of fracture and the patient may be considered for treatment. Re-Screen 2-5 years. NOTE: T-SCORE=SD OF THE YOUNG ADULT MEAN.
== END | disposition home or self-care (01) ==
LOC: RADBDWWP 10:11
PROVIDERS: ATTEND Internal Medicine
DX: M85.80 Other specified disorders of bone density and structure, unspecified site (principal)
CPT/HCPCS: 77080

== ENCOUNTER → 2019-08-25 | Outpatient (CLI) | payer MEDICARE, BC ==
--- NOTE | 2019-08-29 08:30 | MM ---
Reason for exam: additional evaluation requested from prior study. Last mammogram was performed 4 months ago. History: Patient is postmenopausal, has history of breast cancer at age 78, and has history of other cancer at age 60. Family history of breast cancer in maternal cousin at age 60 and breast cancer in maternal aunt at age 60. Malignant MG pre op needle loc RT of the right breast, August 17, 2018. Lumpectomy of the right breast, August 17, 2018. Malignant US biopsy breast VAD RT of the right breast, June 28, 2018. Radiation therapy of both breasts, 2018. Benign US left guided VAD of the left breast, June 23, 2008. Took estrogen for 10 years beginning at age 39. Physical Findings: Nurse did not find any significant physical abnormalities on exam. MG 3D Diag Mammo W/Cad VIC Bilateral CC and MLO view(s) were taken. Prior study comparison: April 14, 2019, right breast MG 3d diag mammo w/cad RT. June 28, 2018, right breast MG diagnostic mammo RT wo CAD. The breast tissue is heterogeneously dense. This may lower the sensitivity of mammography. Finding #1: Architectural distortion in the right breast consistent with known lumpectomy changes. Finding #2: There are typically benign vascular, dystrophic calcifications in both breasts. Previous mammotome biopsy in the left breast. There is no new dominant lesion. These results were verbally communicated with the patient and result sheet given to the patient on 08/25/19. ASSESSMENT: Benign, BI-RAD 2 RECOMMENDATION: Follow-up diagnostic mammogram of both breasts in 1 year.
== END | disposition home or self-care (01) ==
LOC: RADMAMWWP 14:17
PROVIDERS: ATTEND Surgery
DX: R92.8 Other abnormal and inconclusive findings on diagnostic imaging of breast (principal); Z85.3 Personal history of malignant neoplasm of breast
CPT/HCPCS: 77066; G0279; 77062

== ENCOUNTER → 2019-09-01 | Outpatient (CLI) | payer MEDICARE, BC ==
[2019-09-01 15:10] VITALS: BP 144/83; PULSE 96; RESP 20; TEMP 98.4
--- NOTE | 2019-09-01 15:29 | P.PN ---
Subjective Progress Note Date: 09/01/19 Principal diagnosis: Stage 1A right breast cancer; [id number]- Her2- Estelle is a 79-year-old white female status post right breast lumpectomy and sentinel node biopsy 08-17-18. Following this she underwent radiation therapy. She did not have any chemo or hormonal therapy. She did meet with medical oncology, Dr. Singh and opted not to have any further treatment, it was not recommended to her. The patient has no complaints at this time related to any lumps masses nodules or pain in her breast. She is not complaining of any nipple discharge or skin changes. She had a right breast mammogram performed on 2619 which revealed dense breast tissue and post-therapeutic changes but nothing of concern. She had bilateral mammogram on 08-25-19, this was benign BIRAD 2 and repeat mammogram in 1 year recommended. Patient complaining of some back pain, and is following with chiropractor. It is in her lower back and she has had this in the past. Past Surgical History: thyroid cataract wrist right breast Medical History: hypothyroid Detrol for leaking bladder ROS: HEENT: none lungs: none heart: none GI: none : leaking bladder Skin: none Musculoskeletal:none neurologic: none ALLERGIES: As noted Hematologic:none Social Hisgtory: smoke: none alcohol: none driugs: none Objective - Vital Signs Vital signs: Vital Signs Temp 98.4 F 09/01/19 15:07 Pulse 96 09/01/19 15:07 Resp 20 09/01/19 15:07 BP 144/83 09/01/19 15:07 Pulse Ox 96 09/01/19 15:07 Intake & Output 08/31/19 09/01/19 09/01/19 18:59 06:59 18:59 Weight 70.307 kg - Exam BMI 28.3 - Constitutional General appearance: Present: average body habitus - EENT Eyes: Present: EOMI ENT: Present: hearing grossly normal - Neck Neck: Present: normal ROM - Respiratory Respiratory: bilateral: CTA - Cardiovascular Rhythm: regular Heart sounds: normal: S1, S2 - Gastrointestinal General gastrointestinal: Present: normal bowel sounds, soft - Integumentary Integumentary: Present: normal turgor - Psychiatric Psychiatric: Present: A&O x's 3, appropriate affect, intact judgment & insight - Additional findings Additional findings: Breast exam: inspection: right breast ptosis grade 1/2; left breast ptosis grade 2/3 Palpation: Right breast: Postop changes noted a multi-positional exam, BioSorb is still palpable otherwise no dominant masses or nodules of concern Right axilla: No adenopathy of concern Left breast: Multi-positional exam no dominant masses or nodules of concern Left axilla: No adenopathy of concern Assessment and Plan Assessment: Impression: 1. Patient status post right breast lumpectomy she did not receive any chemotherapy or hormonal therapy, she did get radiation therapy 2. BioSorb in place. Palpable but decreasing in size 3. Fibrocystic breast [place] 4[place] [id number] benign Plan: 1. bilateral mammogram in 1 year 2. Follow-up exam here in 6 months 3. Continue to follow with radiation oncology CC: DR. Ang encounter 15 minutes, > 50% of time in planning and counselling
== END | disposition home or self-care (01) ==
LOC: WWCWWP 15:01
PROVIDERS: ATTEND Surgery
DX: Z53.9 Procedure and treatment not carried out, unspecified reason (principal)

== ENCOUNTER → 2020-03-15 | Outpatient (CLI) | payer MEDICARE, BC ==
[2020-03-15 15:53] VITALS: BP 112/66; PULSE 85; RESP 18; TEMP 98
--- NOTE | 2020-03-15 16:13 | P.PN ---
Subjective Progress Note Date: 03/15/20 Principal diagnosis: surveillance stage 1A right breast cancer Stage 1A right breast cancer; [id number]- Her2- Estelle is a 80-year-old white female status post right breast lumpectomy and sentinel node biopsy 08-17-18. Following this she underwent radiation therapy. She did not have any chemo or hormonal therapy. She did meet with medical oncology, Dr. Singh and opted not to have any further treatment, it was not recommended to her. The patient has no complaints at this time related to any lumps masses nodules or pain in her breast. She is not complaining of any nipple discharge or skin changes. She had a right breast mammogram performed on 2619 which revealed dense breast tissue and post-therapeutic changes but nothing of concern. She had bilateral mammogram on 08-25-19, this was benign BIRAD 2 and repeat mammogram in 1 year recommended. Patient complaining of some back pain, and is following with chiropractor. It is in her lower back and she has had this in the past. Past Surgical History: thyroid cataract wrist right breast Medical History: hypothyroid Detrol for leaking bladder ROS: HEENT: none lungs: none heart: none GI: none : leaking bladder Skin: none Musculoskeletal:none neurologic: none ALLERGIES: As noted Hematologic:none Objective - Vital Signs Vital signs: Vital Signs Temp 98.0 F 03/15/20 15:49 Pulse 85 03/15/20 15:49 Resp 18 03/15/20 15:49 BP 112/66 03/15/20 15:49 Pulse Ox 96 03/15/20 15:49 Intake & Output 03/14/20 03/15/20 03/15/20 18:59 06:59 18:59 Weight 68.039 kg - Constitutional General appearance: Present: average body habitus - EENT Eyes: Present: EOMI ENT: Present: hearing grossly normal - Neck Neck: Present: normal ROM - Respiratory Respiratory: bilateral: CTA - Cardiovascular Rhythm: regular Heart sounds: normal: S1, S2 - Gastrointestinal General gastrointestinal: Present: soft - Integumentary Integumentary: Present: normal turgor - Musculoskeletal Musculoskeletal: Present: gait normal - Additional findings Additional findings: breast exam: BRA: 36B inspection: scar right breast from prior lumpectomy right ptosis right side grade 1/2, ptosis left side grade 2/3 Palpation: Right breast BioSorb area palpable and mildly tender to palpation, no other dominant masses or nodules of concern, fibro-cystic changes Right axilla: No adenopathy of concern Left breast: Fibrocystic changes no dominant masses or nodules of concern Left axilla: No adenopathy of concern Assessment and Plan Assessment: Impression: hypothyroid Detrol for leaking bladder stage IA right breast cancer no recurrence/ biozorb palpable Plan: 1. Bilateral mammogram in August with physician exam at that time 2. If the BioSorb is still bothering the patient will consider surgical resection, at this time she does not want to do this secondary to the risk from COVID CC: DR. Lucas encounter 15 minutes > 50% of time in planning and counselling
== END | disposition home or self-care (01) ==
LOC: WWCWWP 15:35
PROVIDERS: ATTEND Surgery
DX: Z53.9 Procedure and treatment not carried out, unspecified reason (principal)

== ENCOUNTER → 2020-08-27 | Outpatient (CLI) | payer MEDICARE, BC ==
--- NOTE | 2020-08-28 08:38 | MM ---
Reason for exam: additional evaluation requested from prior study. Last mammogram was performed 1 year ago. History: Patient is postmenopausal, has history of breast cancer at age 78, and has history of other cancer at age 60. Family history of breast cancer in maternal cousin at age 60 and breast cancer in maternal aunt at age 60. Malignant MG pre op needle loc RT of the right breast, August 17, 2018. Lumpectomy of the right breast, August 17, 2018. Malignant US biopsy breast VAD RT of the right breast, June 28, 2018. Radiation therapy of both breasts, 2018. Benign US left guided VAD of the left breast, June 23, 2008. Took estrogen for 10 years beginning at age 39. Physical Findings: Nurse did not find any significant physical abnormalities on exam. MG 3D Diag Mammo W/Cad VIC Bilateral CC and MLO view(s) were taken. Prior study comparison: August 25, 2019, bilateral MG 3d diag mammo w/cad VIC. April 14, 2019, right breast MG 3d diag mammo w/cad RT. June 14, 2018, bilateral MG 3d screening mammo w/cad. There are scattered fibroglandular densities. Right post lumpectomy with new fine heterogeneous grouping of calcifications at post operative site 1.4 x 0.8 x 0.9cm and 6 month follow up diagnostic is recommended. Patient could not tolerate magnification CC view. These results were verbally communicated with the patient and result sheet given to the patient on 08/27/20. ASSESSMENT: Probably benign, BI-RAD 3 RECOMMENDATION: Follow-up diagnostic mammogram of the right breast in 6 months.
== END | disposition home or self-care (01) ==
LOC: RADMAMWWP 13:37
PROVIDERS: ATTEND Surgery
DX: N64.89 Other specified disorders of breast (principal); R92.1 Mammographic calcification found on diagnostic imaging of breast; Z78.0 Asymptomatic menopausal state; Z80.3 Family history of malignant neoplasm of breast; Z85.3 Personal history of malignant neoplasm of breast
CPT/HCPCS: 77066; G0279; 77062

== ENCOUNTER → 2020-09-13 | Outpatient (CLI) | payer MEDICARE, BC ==
[2020-09-13 15:46] VITALS: BP 142/86; PULSE 89; RESP 18; TEMP 98.2
--- NOTE | 2020-09-13 16:04 | P.PN ---
Subjective Progress Note Date: 09/13/20 Principal diagnosis: stage IA right breast pain Stage 1A right breast cancer; [id number]- Her2- Estelle is a 80-year-old white female status post right breast lumpectomy and sentinel node biopsy on 08-17-18. Following this she underwent radiation therapy. She did not have any chemo or hormonal therapy. She did meet with medical oncology, Dr. Singh and opted not to have any further treatment, it was not recommended to her. The patient has no complaints at this time related to any lumps masses nodules or pain in her breast. She is not complaining of any nipple discharge or skin changes. She had a right breast mammogram performed on 2619 which revealed dense breast tissue and post-therapeutic changes but nothing of concern. She had bilateral mammogram on 08-27-20, this was benign BIRAD 3 and follow-up diagnostic mammogram of the right breast in 6 months was recommended. Patient was complaining of some back pain on her last appointment which has improved. It is in her lower back and she has had this in [place] [id number] Olivier reviewed. Past Surgical History: thyroid cataract wrist right breast Medical History: hypothyroid Detrol for leaking bladder ROS: HEENT: none lungs: none heart: none GI: none : leaking bladder Skin: none Musculoskeletal:none neurologic: none ALLERGIES: As noted Hematologic:none Objective - Vital Signs Vital signs: Vital Signs Temp 98.2 F 09/13/20 15:44 Pulse 89 09/13/20 15:44 Resp 18 09/13/20 15:44 BP 142/86 09/13/20 15:44 Pulse Ox 95 09/13/20 15:44 Intake & Output 09/12/20 09/13/20 09/13/20 18:59 06:59 18:59 Weight 68.039 kg - Exam BMI 27.4 - Constitutional General appearance: Present: average body habitus - EENT Eyes: Present: EOMI ENT: Present: hearing grossly normal - Neck Neck: Present: normal ROM - Respiratory Respiratory: bilateral: CTA - Cardiovascular Rhythm: regular Heart sounds: normal: S1, S2 - Integumentary Integumentary: Present: normal turgor - Musculoskeletal Musculoskeletal: Present: gait normal - Psychiatric Psychiatric: Present: A&O x's 3, appropriate affect, intact judgment & insight - Additional findings Additional findings: Breast exam: BRA: 36B inspection: Right breast radiation and surgical changes Palpation: Right breast: Postop and post radiation changes noted especially at the 12 o'clock position of the right breast Multiple positional exam fibrocystic changes and 12 o'clock position postoperative and postradiation changes Right axilla: No adenopathy of concern Left breast: Multiple positional exam fibrocystic changes no dominant masses or nodules of concern Left axilla: No adenopathy of concern Assessment and Plan Assessment: Impression/Plan: 1. Patient stage IA right breast triple negative breast cancer treated with surgery and radiation therapy at this time no evidence of recurrent cancer 2. Recent right breast mammogram showing some small microcalcifications at the area of lumpectomy plan repeat right breast mammogram in 6 months 3. Patient to continue to follow with radiation oncology 4. Patient to follow up here in 6 months after right breast mammogram CC: Dr. Lucas
== END ==
LOC: WWCWWP 15:31
PROVIDERS: ATTEND Surgery
DX: R92.0 Mammographic microcalcification found on diagnostic imaging of breast (principal); E03.9 Hypothyroidism, unspecified; Z85.3 Personal history of malignant neoplasm of breast; Z92.3 Personal history of irradiation; Z98.890 Other specified postprocedural states; Z79.890 Hormone replacement therapy; Z88.6 Allergy status to analgesic agent; Z88.0 Allergy status to penicillin; Z88.8 Allergy status to other drugs, medicaments and biological substances

== ENCOUNTER → 2021-03-27 | Outpatient (CLI) | payer MEDICARE, BC ==
--- NOTE | 2021-03-28 08:55 | MM ---
Reason for exam: follow-up at short interval from prior study. Last mammogram was performed 7 months ago. History: Patient is postmenopausal, has history of breast cancer at age 78, and has history of other cancer at age 60. Family history of breast cancer in maternal cousin at age 60 and breast cancer in maternal aunt at age 60. Malignant MG pre op needle loc RT of the right breast, August 17, 2018. Lumpectomy of the right breast, August 17, 2018. Malignant US biopsy breast VAD RT of the right breast, June 28, 2018. Radiation therapy of both breasts, 2018. Benign US left guided VAD of the left breast, June 23, 2008. Took estrogen for 10 years beginning at age 39. Physical Findings: Nurse did not find any significant physical abnormalities on exam. MG 3D Diag Mammo W/Cad RT CC and MLO view(s) were taken of the right breast. Prior study comparison: August 27, 2020, bilateral MG 3d diag mammo w/cad VIC. August 25, 2019, bilateral MG 3d diag mammo w/cad VIC. The breast tissue is heterogeneously dense. This may lower the sensitivity of mammography. Finding: There are fine, regional calcifications in the posterior position of the right breast, biopsy and radiation site. Right breast biopsy changes. These results were verbally communicated with the patient and result sheet given to the patient on 03/27/21. ASSESSMENT: Probably benign, BI-RAD 3 RECOMMENDATION: Follow-up diagnostic mammogram of both breasts in 6 months.
== END | disposition home or self-care (01) ==
LOC: RADMAMWWP 14:15
PROVIDERS: ATTEND Surgery
DX: R92.1 Mammographic calcification found on diagnostic imaging of breast (principal); Z80.3 Family history of malignant neoplasm of breast; Z85.3 Personal history of malignant neoplasm of breast; Z78.0 Asymptomatic menopausal state
CPT/HCPCS: 77065; G0279; 77061

== ENCOUNTER → 2021-04-18 | Outpatient (CLI) | payer MEDICARE, BC ==
[2021-04-18 14:19] VITALS: BP 129/83; PULSE 86; RESP 16; TEMP 98
--- NOTE | 2021-04-18 14:26 | P.PN ---
Subjective Progress Note Date: 04/18/21 Principal diagnosis: stage IA right breast cancer Stage 1A right breast cancer; [id number]- Her2- Estelle is an 81-year-old white female status post right breast lumpectomy and sentinel node biopsy on 08-17-18. Following this she underwent radiation therapy. She did not have any chemo or hormonal therapy. She did meet with medical oncology, Dr. Singh and opted not to have any further treatment, it was not recommended to her. The patient has no complaints at this time related to any lumps masses nodules or pain in her breast. She is not complaining of any nipple discharge or skin changes. She had a right breast mammogram performed on 2619 which revealed dense breast tissue and post-therapeutic changes but nothing of concern. She had bilateral mammogram on 08-27-20, this was benign BIRAD 3 and follow-up diagnostic mammogram of the right breast in 6 months was recommended. 04-18-21 right breast mammogram on 03-27-21 BIRAD 3. Follow up bilateral mammogram in 6 months Is not complaining of any new lumps masses or nodules in either breast. Prior back pain has resolved Past Surgical History: thyroid cataract wrist right breast Medical History: hypothyroid Detrol for leaking bladder ROS: HEENT: none lungs: none heart: none GI: none : leaking bladder Skin: none Musculoskeletal:none neurologic: none ALLERGIES: As noted Hematologic:none Objective - Vital Signs Vital signs: Intake & Output 04/17/21 04/18/21 04/18/21 18:59 06:59 18:59 Weight 68.039 kg - Constitutional General appearance: Present: cooperative - EENT Eyes: Present: EOMI ENT: Present: hearing grossly normal - Neck Neck: Present: normal ROM - Respiratory Respiratory: bilateral: CTA - Cardiovascular Rhythm: regular Heart sounds: normal: S1, S2 - Gastrointestinal General gastrointestinal: Present: soft - Integumentary Integumentary: Present: normal turgor - Musculoskeletal Musculoskeletal: Present: gait normal - Psychiatric Psychiatric: Present: A&O x's 3, appropriate affect, intact judgment & insight - Additional findings Additional findings: Breast Exam: BRA: 36B inspection: Scar right breast. Prior lumpectomy and postop changes at BioSorb site, left breast grade 3 ptosis Palpation: Right breast: Multi-positional exam well-healed scar and changes at BioSorb site, other dominant masses or nodules of concern Right axilla: No adenopathy of concern Left breast: Multi-positional exam fibrocystic changes no dominant masses or nodules of concern Left axilla: No adenopathy of concern Assessment and Plan Assessment: Impression: hypothyroid Detrol for leaking bladder Stage IA right breast cancer no evidence of recurrent disease Post op changes related to bile sore placement and radiation therapy Nothing which would warrant interventional biopsy at this time Plan: Repeat bilateral mammogram in 6 months with physician exam at that time Close surveillance of Iodosorb area if this changes patient will come in sooner Patient has opted not to have hormonal therapy, she continues to follow with radiation therapy Cc: Dr. Lcuas
== END ==
LOC: WWCWWP 14:03
PROVIDERS: ATTEND Surgery
DX: Z85.3 Personal history of malignant neoplasm of breast (principal); Z08 Encounter for follow-up examination after completed treatment for malignant neoplasm; E03.8 Other specified hypothyroidism; Z98.890 Other specified postprocedural states; Z88.0 Allergy status to penicillin; Z88.6 Allergy status to analgesic agent; Z91.02 Food additives allergy status

== ENCOUNTER 2021-05-15 07:19 | Emergency (ER) | payer MEDICARE, BC ==
[2021-05-15 07:48] VITALS: TEMP 99.2
[2021-05-15] MEDS ORDERED: SODIUM CHLORIDE 0.9% 1,000 ML IV ONE (07:58)
--- NOTE | 2021-05-15 07:59 | ED ---
General Adult HPI - General Chief complaint: Syncope Stated complaint: Weakness/Syncope Time Seen by Provider: 05/15/21 07:23 Source: patient, EMS, RN notes reviewed, old records reviewed Mode of arrival: EMS Limitations: physical limitation - History of Present Illness Initial comments: 81-year-old female presenting with right lower dental pain and generalized weakness. Patient called EMS this morning for increased generalized weakness and near syncopal episode. She states she did not eat at all yesterday. She has been dealing with a painful right lower molar. She denies fever. Denies chest pain. Denies abdominal pain. Denies vomiting or diarrhea but has had a poor appetite. No focal numbness or weakness. No headache. - Related Data Home Medications Medication Instructions Recorded Confirmed Calcium Carbonate/Vitamin D3 1 tab PO HS 10/09/15 05/15/21 [Calcium 600-Vit D3 200 Tablet] Levothyroxine Sodium [Synthroid] 25 mcg PO DAILY 10/09/15 05/15/21 Tolterodine ER [Detrol LA] 4 mg PO HS 10/09/15 05/15/21 Cetirizine HCl [Zyrtec] 10 mg PO HS 07/02/18 05/15/21 Cholecalciferol [Vitamin D3 (25 50 mcg PO HS 05/15/21 05/15/21 Mcg = 1000 Iu)] Previous Rx's Medication Instructions Recorded Clindamycin [Cleocin] 300 mg PO Q6H 10 Days #80 cap 05/15/21 Allergies Allergy/AdvReac Type Severity Reaction Status Date / Time Penicillins Allergy Rash/Hives Verified 05/15/21 09:02 aspirin AdvReac Mild Nausea Verified 05/15/21 09:02 monosodium glutamate [MSG] AdvReac Unknown Verified 05/15/21 09:02 Review of Systems ROS Statement: Those systems with pertinent positive or pertinent negative responses have been documented in the HPI. ROS Other: All systems not noted in ROS Statement are negative. Past Medical History Past Medical History: Cancer, Renal Disease, Thyroid Disorder Additional Past Medical History / Comment(s): overactive bladder, hx. skin cancer, newly dx. breast cancer, slight decreased kidney function History of Any Multi-Drug Resistant Organisms: None Reported Past Surgical History: Hysterectomy Additional Past Surgical History / Comment(s): partial thyroidectomy, cataracts removed,. melanoma removed rt shoulder. rt wrist ganglion cyst removed. trigger thumb rt side. colonoscopy Past Anesthesia/Blood Transfusion Reactions: No Reported Reaction Past Psychological History: No Psychological Hx Reported Smoking Status: Never smoker Past Alcohol Use History: None Reported Past Drug Use History: None Reported - Past Family History Father Family Medical History: Cancer Additional Family Medical History / Comment(s): prostate Mother Family Medical History: Cancer Additional Family Medical History / Comment(s): colonoscopy. colon cancer General Exam Limitations: physical limitation General appearance: alert, in no apparent distress Head exam: Present: atraumatic, normocephalic Eye exam: Present: normal appearance, PERRL ENT exam: Present: mucous membranes dry, other (Poor dentition, dental caries and fractured right lower molars.) Neck exam: Present: normal inspection Respiratory exam: Present: normal lung sounds bilaterally. Absent: respiratory distress, wheezes Cardiovascular Exam: Present: regular rate, normal rhythm GI/Abdominal exam: Present: soft. Absent: distended, tenderness, guarding Extremities exam: Present: normal inspection, normal capillary refill. Absent: pedal edema, calf tenderness Neurological exam: Present: alert, oriented X3, CN II-XII intact. Absent: motor sensory deficit Psychiatric exam: Present: normal affect, normal mood Skin exam: Present: warm, dry, intact. Absent: cyanosis, diaphoretic Course Vital Signs 05/15/21 07:26 Temperature 99.2 F Pulse Rate 66 Respiratory 18 Rate Blood Pressure 130/63 O2 Sat by Pulse 98 Oximetry EKG Findings - EKG Comments: EKG Findings:: EKG: Sinus rhythm rate of 60, W[place] interval 173, QRS duration 83, QTC 409, no ST segment elevation. Medical Decision Making - Medical Decision Making 81-year-old female with right lower tooth pain. Poor dentition. Patient states that she will make an appointment with oral surgery to have this tooth extracted. I did obtain laboratory testing which shows a normal white blood cell count with left shift. Mildly elevated creatinine at 1.18. Lactic is normal. Electrolytes otherwise normal. Patient feeling better after IV hydration. She lives with her daughter. She started on clindamycin as she has a penicillin ALLERGY for dental infection. She will contact oral surgery for extraction. Return parameters were discussed. Is clear. - Lab Data Result diagrams: 05/15/21 09:35 05/15/21 08:28 Lab Results 05/15/21 05/15/21 05/15/21 Range/Units 08:28 08:28 08:28 WBC (3.8-10.6) k/uL RBC (3.80-5.40) m/uL Hgb (11.4-16.0) gm/dL Hct (34.0-46.0) % MCV (80.0-100.0) fL MCH (25.0-35.0) pg MCHC (31.0-37.0) g/dL RDW (11.5-15.5) % Plt Count (150-450) k/uL MPV Neutrophils % % Lymphocytes % % Monocytes % % Eosinophils % % Basophils % % Neutrophils # (1.3-7.7) k/uL Lymphocytes # (1.0-4.8) k/uL Monocytes # (0-1.0) k/uL Eosinophils # (0-0.7) k/uL Basophils # (0-0.2) k/uL PT (9.0-12.0) sec INR (<1.2) APTT (22.0-30.0) sec Sodium 138 (137-145) mmol/L Potassium 4.8 (3.5-5.1) mmol/L Chloride 107 (98-107) mmol/L Carbon Dioxide 28 (22-30) mmol/L Anion Gap 3 mmol/L BUN 16 (7-17) mg/dL Creatinine 1.18 H (0.52-1.04) mg/dL Est GFR (CKD-EPI)AfAm 51 (>60 ml/min/1.73 sqM) Est GFR (CKD-EPI)NonAf 44 (>60 ml/min/1.73 sqM) Glucose 91 (74-99) mg/dL Plasma Lactic Acid Remigio (0.7-2.0) mmol/L Calcium 9.4 (8.4-10.2) mg/dL Magnesium 2.2 (1.6-2.3) mg/dL Total Bilirubin 1.0 (0.2-1.3) mg/dL AST 35 (14-36) U/L ALT 13 (4-34) U/L Alkaline Phosphatase 64 (38-126) U/L Troponin I 0.014 (0.000-0.034) ng/mL Total Protein 7.3 (6.3-8.2) g/dL Albumin 3.8 (3.5-5.0) g/dL Urine Color Urine Appearance (Clear) Urine pH (5.0-8.0) Ur Specific Jasper (1.001-1.035) Urine Protein (Negative) Urine Glucose (UA) (Negative) Urine Ketones (Negative) Urine Blood (Negative) Urine Nitrite (Negative) Urine Bilirubin (Negative) Urine Urobilinogen (<2.0) mg/dL Ur Leukocyte Esterase (Negative) Urine RBC (0-5) /hpf Urine WBC (0-5) /hpf Ur Squamous Epith Cells (0-4) /hpf Urine Bacteria (None) /hpf Urine Mucus (None) /hpf Coronavirus (PCR) Not Detected (Not Detectd) 05/15/21 05/15/21 05/15/21 Range/Units 08:30 09:35 09:35 WBC 10.5 (3.8-10.6) k/uL RBC 4.65 (3.80-5.40) m/uL Hgb 14.3 (11.4-16.0) gm/dL Hct 45.2 (34.0-46.0) % MCV 97.3 (80.0-100.0) fL MCH 30.8 (25.0-35.0) pg MCHC 31.6 (31.0-37.0) g/dL RDW 12.9 (11.5-15.5) % Plt Count 333 (150-450) k/uL MPV 6.8 Neutrophils % 82 % Lymphocytes % 12 % Monocytes % 5 % Eosinophils % 1 % Basophils % 1 % Neutrophils # 8.6 H (1.3-7.7) k/uL Lymphocytes # 1.2 (1.0-4.8) k/uL Monocytes # 0.5 (0-1.0) k/uL Eosinophils # 0.1 (0-0.7) k/uL Basophils # 0.1 (0-0.2) k/uL PT 10.5 (9.0-12.0) sec INR 1.0 (<1.2) APTT 20.1 L (22.0-30.0) sec Sodium (137-145) mmol/L Potassium (3.5-5.1) mmol/L Chloride (98-107) mmol/L Carbon Dioxide (22-30) mmol/L Anion Gap mmol/L BUN (7-17) mg/dL Creatinine (0.52-1.04) mg/dL Est GFR (CKD-EPI)AfAm (>60 ml/min/1.73 sqM) Est GFR (CKD-EPI)NonAf (>60 ml/min/1.73 sqM) Glucose (74-99) mg/dL Plasma Lactic Acid Remigio 1.4 (0.7-2.0) mmol/L Calcium (8.4-10.2) mg/dL Magnesium (1.6-2.3) mg/dL Total Bilirubin (0.2-1.3) mg/dL AST (14-36) U/L ALT (4-34) U/L Alkaline Phosphatase (38-126) U/L Troponin I (0.000-0.034) ng/mL Total Protein (6.3-8.2) g/dL Albumin (3.5-5.0) g/dL Urine Color Urine Appearance (Clear) Urine pH (5.0-8.0) Ur Specific Jasper (1.001-1.035) Urine Protein (Negative) Urine Glucose (UA) (Negative) Urine Ketones (Negative) Urine Blood (Negative) Urine Nitrite (Negative) Urine Bilirubin (Negative) Urine Urobilinogen (<2.0) mg/dL Ur Leukocyte Esterase (Negative) Urine RBC (0-5) /hpf Urine WBC (0-5) /hpf Ur Squamous Epith Cells (0-4) /hpf Urine Bacteria (None) /hpf Urine Mucus (None) /hpf Coronavirus (PCR) (Not Detectd) 05/15/21 Range/Units 10:23 WBC (3.8-10.6) k/uL RBC (3.80-5.40) m/uL Hgb (11.4-16.0) gm/dL Hct (34.0-46.0) % MCV (80.0-100.0) fL MCH (25.0-35.0) pg MCHC (31.0-37.0) g/dL RDW (11.5-15.5) % Plt Count (150-450) k/uL MPV Neutrophils % % Lymphocytes % % Monocytes % % Eosinophils % % Basophils % % Neutrophils # (1.3-7.7) k/uL Lymphocytes # (1.0-4.8) k/uL Monocytes # (0-1.0) k/uL Eosinophils # (0-0.7) k/uL Basophils # (0-0.2) k/uL PT (9.0-12.0) sec INR (<1.2) APTT (22.0-30.0) sec Sodium (137-145) mmol/L Potassium (3.5-5.1) mmol/L Chloride (98-107) mmol/L Carbon Dioxide (22-30) mmol/L Anion Gap mmol/L BUN (7-17) mg/dL Creatinine (0.52-1.04) mg/dL Est GFR (CKD-EPI)AfAm (>60 ml/min/1.73 sqM) Est GFR (CKD-EPI)NonAf (>60 ml/min/1.73 sqM) Glucose (74-99) mg/dL Plasma Lactic Acid Remigio (0.7-2.0) mmol/L Calcium (8.4-10.2) mg/dL Magnesium (1.6-2.3) mg/dL Total Bilirubin (0.2-1.3) mg/dL AST (14-36) U/L ALT (4-34) U/L Alkaline Phosphatase (38-126) U/L Troponin I (0.000-0.034) ng/mL Total Protein (6.3-8.2) g/dL Albumin (3.5-5.0) g/dL Urine Color Yellow Urine Appearance Cloudy H (Clear) Urine pH 6.0 (5.0-8.0) Ur Specific Jasper 1.012 (1.001-1.035) Urine Protein Negative (Negative) Urine Glucose (UA) Negative (Negative) Urine Ketones 1+ H (Negative) Urine Blood Moderate H (Negative) Urine Nitrite Positive H (Negative) Urine Bilirubin Negative (Negative) Urine Urobilinogen <2.0 (<2.0) mg/dL Ur Leukocyte Esterase Small H (Negative) Urine RBC 10 H (0-5) /hpf Urine WBC 36 H (0-5) /hpf Ur Squamous Epith Cells 1 (0-4) /hpf Urine Bacteria Rare H (None) /hpf Urine Mucus Rare H (None) /hpf Coronavirus (PCR) (Not Detectd) Disposition Clinical Impression: Infected tooth, Generalized weakness Disposition: HOME SELF-CARE Condition: Fair Instructions (If sedation given, give patient instructions): Toothache (ED), De ntal Abscess (ED) Prescriptions: Clindamycin [Cleocin] 300 mg PO Q6H 10 Days #80 cap Is patient prescribed a controlled substance at d/c from ED?: No Referrals: Diamond Lucas MD [Primary Care Provider] - 1-2 days Rob Carter DDS [STAFF PHYSICIAN] - 1-2 days Time of Disposition: 10:36
[2021-05-15 08:46] LABS: Albumin 3.8 g/dL (3.5-5.0); Calcium 9.4 mg/dL (8.4-10.2); Total Protein 7.3 g/dL (6.3-8.2)
--- NOTE | 2021-05-15 08:49 | XR ---
EXAMINATION TYPE: XR chest 2V DATE OF EXAM: 05/15/2021 COMPARISON: X-ray dated 18 October 2009 HISTORY: Weakness TECHNIQUE: Frontal and lateral views of the chest are obtained. FINDINGS: Prominent right pericardial fat pad. Suspected mild COPD changes, please correlate clinically and wit h pulmonary function tests. Grossly unremarkable lungs otherwise. No sizable pleural effusion or definite pneumothorax. No gross cardiomegaly. Aortic atherosclerotic c alcifications. Right chest wall/breast surgical clips. Degenerative changes of the right acromioclavicular joint. IMPRESSION: Questionable COPD changes. No definite acute pulmonary abnormality identified. Incidental findings as described above.
[2021-05-15 08:52] LABS: Magnesium 2.2 mg/dL (1.6-2.3); Potassium 4.8 mmol/L (3.5-5.1)
[2021-05-15 10:01] LABS: Basophils # (A) 0.1 k/uL (0-0.2); Basophils % (A) 1 %; Eosinophils # (A) 0.1 k/uL (0-0.7); Eosinophils % (A) 1 %; HCT 45.2 % (34.0-46.0); HGB 14.3 gm/dL (11.4-16.0); Lymphocytes # (A) 1.2 k/uL (1.0-4.8); Lymphocytes % (A) 12 %; MCH 30.8 pg (25.0-35.0); MCHC 31.6 g/dL (31.0-37.0); MCV 97.3 fL (80.0-100.0); Mean Platelet Volume 6.8; Monocytes # (A) 0.5 k/uL (0-1.0); Monocytes % (A) 5 %; Neutrophils # (A) 8.6 k/uL (1.3-7.7); Neutrophils % (A) 82 %; Platelet Count 333 k/uL (150-450); RBC 4.65 m/uL (3.80-5.40); RDW 12.9 % (11.5-15.5); WBC 10.5 k/uL (3.8-10.6)
[2021-05-15 10:17] LABS: Prothrombin Time 10.5 sec (9.0-12.0)
[2021-05-15 10:22] LABS: Partial Thromboplastin Time 20.1 sec (22.0-30.0)
[2021-05-15 10:31] LABS: Appearance,Urine Cloudy (Clear); Bacteria,Urine Rare /hpf; Bilirubin,Urine Negative (Negative); Blood,Urine Moderate (Negative); Color,Urine Yellow; Glucose,Urine (UA) Negative (Negative); Ketones,Urine 1+ (Negative); Leukocyte Esterase,Urine Small (Negative); Mucus,Urine Rare /hpf; Nitrite,Urine Positive (Negative); Protein,Urine Negative (Negative); RBC,Urine 10 /hpf (0-5); Specific Gravity,Urine 1.012 (1.001-1.035); Squamous Epithelial Cell,Urine 1 /hpf (0-4); Urobilinogen,Urine <2.0 mg/dL (<2.0); WBC,Urine 36 /hpf (0-5)
[2021-05-15] MEDS ORDERED: CLINDAMYCIN 150 MG CAP PO STA (10:34)
[2021-05-15 10:49] VITALS: BP 122/61; PULSE 78; RESP 16
== END 2021-05-15 11:00 | disposition home or self-care (01) ==
LOC: EC 07:19
DX: R53.1 Weakness (principal); K04.7 Periapical abscess without sinus; Z20.822 Contact with and (suspected) exposure to COVID-19
CPT/HCPCS: 36415; 71046; 80053; 81001; 83605; 83735; 84484; 85025; 85610; 85730; 87077; 87086; 87186; 87635; 93005; 96360; 99285

== ENCOUNTER → 2021-09-25 | Outpatient (CLI) | payer MEDICARE, BC ==
--- NOTE | 2021-09-25 15:19 | MM ---
Reason for Exam: Additional evaluation requested from prior study. Last mammogram was performed 1 year(s) and 1 month(s) ago. Patient History: Menarche at age 13. First Full-Term at age 19. Left ovary removed at age 39. Right ovary removed at age 39. Hysterectomy at age 39. Postmenopausal. Other cancer, age 60. Breast cancer, right, age 78. Estrogen for 10 years from age 39 until age 49. 08/17/2018, Lumpectomy on the Right side. 08/17/2018, Malignant Core Biopsy on the right side. 06/28/2018, Malignant Core Biopsy on the right side. 06/23/2008, Benign Core Biopsy on the left side. 2019, Bilateral Radiation Therapy. Maternal cousin had breast cancer, age 60. Maternal aunt had breast cancer, age 60. Prior Study Comparison: 04/11/2017 Bilateral Screening Mammogram, [facility]. 06/14/2018 Bilateral Screening Mammogram, [facility]. 04/14/2019 Right Diagnostic Mammogram, [facility]. 08/25/2019 Bilateral Diagnostic Mammogram, [facility]. 08/27/2020 Bilateral Diagnostic Mammogram, [facility]. Tissue Density: The breast tissue is heterogeneously dense. This may lower the sensitivity of mammography. Findings: Analyzed By CAD. Postlumpectomy distortion right breast is unchanged. Benign calcifications seen bilaterally. No evidence for new mass. Overall Assessment: Benign, BI-RAD 2 Management: Diagnostic Mammogram of both breasts in 1 year. A clinical breast exam by your physician is recommended on an annual basis and results should be correlated with mammographic findings. This exam should not preclude additional follow-up of suspicious palpable abnormalities. Results were given to the patient verbally at the time of exam. Electronically signed and approved by: Franky Shea M.D. Radiologis
== END | disposition home or self-care (01) ==
LOC: RADMAMWWP 14:51
PROVIDERS: ATTEND Surgery
DX: R92.8 Other abnormal and inconclusive findings on diagnostic imaging of breast (principal); Z78.0 Asymptomatic menopausal state; Z80.3 Family history of malignant neoplasm of breast
CPT/HCPCS: 77066; G0279; 77062

== ENCOUNTER → 2021-09-26 | Outpatient (CLI) | payer MEDICARE, BC ==
[2021-09-26 16:34] VITALS: BP 155/82; PULSE 83; RESP 17; TEMP 98.9
--- NOTE | 2021-09-26 16:53 | P.PN ---
Subjective Progress Note Date: 09/26/21 Principal diagnosis: stage IA right breast cancer stage IA right breast cancer Stage 1A right breast cancer; [id number]- Her2- Estelle is an 81-year-old white female status post right breast lumpectomy and sentinel node biopsy on 08-17-18. Following this she underwent radiation therapy. She did not have any chemo or hormonal therapy. She did meet with medical oncology, Dr. Singh and opted not to have any further treatment, it was not recommended to her. The patient has no complaints at this time related to any lumps masses nodules or pain in her breast. She is not complaining of any nipple discharge or skin changes. She had a right breast mammogram performed on 2619 which revealed dense breast tissue and post-therapeutic changes but nothing of concern. She had bilateral mammogram on 08-27-20, this was benign BIRAD 3 and follow-up diagnostic mammogram of the right breast in 6 months was recommended. 04-18-21 right breast mammogram on 03-27-21 BIRAD 3. Follow up bilateral mammogram in 6 months Is not complaining of any new lumps masses or nodules in either breast. Prior back pain has resolved 09-26-21 Bilateral mammogram on 09-25-21 BIRAD 2 She is not complaining of a lumps, masses or nodules in either breast. Past Surgical History: thyroid cataract wrist right breast Medical History: hypothyroid Detrol for leaking bladder ROS: HEENT: none lungs: none heart: none GI: none : leaking bladder Skin: none Musculoskeletal:none neurologic: none ALLERGIES: As noted Hematologic:none Objective - Vital Signs Vital signs: Vital Signs Temp 98.9 F 09/26/21 16:32 Pulse 83 09/26/21 16:32 Resp 17 09/26/21 16:32 BP 155/82 09/26/21 16:32 Pulse Ox 97 09/26/21 16:32 FiO2 Intake & Output 09/25/21 09/26/21 09/26/21 18:59 06:59 18:59 Weight 68.039 kg - Exam BMI: 27.4 - Constitutional General appearance: Present: cooperative - EENT Eyes: Present: EOMI - Neck Neck: Present: normal ROM - Respiratory Respiratory: bilateral: CTA - Cardiovascular Rhythm: regular Heart sounds: normal: S1, S2 - Integumentary Integumentary: Present: normal turgor - Musculoskeletal Musculoskeletal Comment(s): right knee pain/affecting ambulation - Psychiatric Psychiatric: Present: A&O x's 3, appropriate affect, intact judgment & insight - Additional findings Additional findings: Breast Exam: BRA: 36B inspection: Stopped changes right breast Palpation: Right breast: Post op and postradiation changes, no dominant masses or nodules of concern Right axilla: No adenopathy of concern Left breast: No dominant masses or nodules of concern, fibrocystic breast changes Left axilla: No adenopathy of concern Assessment and Plan Assessment: Impression: Patient status post right breast lumpectomy and sentinel node biopsy with radiation therapy for stage IA invasive ductal carcinoma. She does not have any chemo or hormonal therapy. Hypothyroid Plan: Patient doing well plan follow-up in 6 months with physician exam at that time CC: Dr. Lucas
== END ==
LOC: WWCWWP 16:15
PROVIDERS: ATTEND Surgery
DX: R92.8 Other abnormal and inconclusive findings on diagnostic imaging of breast (principal); C50.911 Malignant neoplasm of unspecified site of right female breast; Z98.890 Other specified postprocedural states; E03.9 Hypothyroidism, unspecified; Z88.6 Allergy status to analgesic agent; Z88.0 Allergy status to penicillin; Z91.02 Food additives allergy status

== ENCOUNTER → 2022-10-27 | Outpatient (CLI) | payer MEDICARE, BC ==
--- NOTE | 2022-10-27 14:44 | MM ---
Reason for Exam: Hx of breast cancer, conservation therapy. Last mammogram was performed 1 year(s) and 1 month(s) ago. Patient History: Menarche at age 13. First Full-Term at age 19. Left ovary removed at age 39. Right ovary removed at age 39. Hysterectomy at age 39. Postmenopausal. Other cancer, age 60. Breast cancer, right, age 78. Estrogen for 10 years from age 39 until age 49. 08/17/2018, Lumpectomy on the Right side. 08/17/2018, Malignant Core Biopsy on the right side. 06/28/2018, Malignant Core Biopsy on the right side. 06/23/2008, Benign Core Biopsy on the left side. 2019, Bilateral Radiation Therapy. Maternal cousin had breast cancer, age 60. Maternal aunt had breast cancer, age 60. Tissue Density: There are scattered fibroglandular densities. Findings: Analyzed By CAD. Pattern appears stable. Postsurgical changes are within the 12:00 posterior right breast. Scattered calcifications are present bilaterally. Pattern and distribution appears stable. Core marker is within the left breast. No significant interval changes are evident. No suspicious groups of microcalcifications, spiculated or lobular masses, architectural distortion or other secondary signs of malignancy are mammographically apparent. Overall Assessment: Benign, BI-RAD 2 Management: Screening Mammogram of both breasts in 1 year. A negative mammogram report should not preclude additional follow up of suspicious palpable abnormalities. Patient should continue monthly self breast exam. A clinical breast exam by your physician is recommended on an annual basis and results should be correlated with mammographic findings. Electronically signed and approved by: Marc Olvera D.O. Radiologis
== END | disposition home or self-care (01) ==
LOC: RADMAMWWP 14:11
PROVIDERS: ATTEND Surgery
DX: R92.8 Other abnormal and inconclusive findings on diagnostic imaging of breast (principal); Z85.3 Personal history of malignant neoplasm of breast; Z78.0 Asymptomatic menopausal state; Z80.3 Family history of malignant neoplasm of breast
CPT/HCPCS: 77066; G0279; 77062

== ENCOUNTER → 2022-11-27 | Outpatient (CLI) | payer MEDICARE, BC ==
[2022-11-27 15:20] VITALS: BP 143/80; PULSE 73; RESP 16; TEMP 98.2
--- NOTE | 2022-11-27 15:31 | P.PN ---
Subjective Progress Note Date: 11/27/22 Principal diagnosis: right breast stage IA invasive ductal cancer, 2019 stage IA right breast cancer Stage 1A right breast cancer; [id number]- Her2- Estelle is an 82-year-old white female status post right breast lumpectomy and sentinel node biopsy on 08-17-18. Following this she underwent radiation therapy. She did not have any chemo or hormonal therapy. She did meet with medical oncology, Dr. Singh and opted not to have any further treatment, it was not recommended to her. The patient has no complaints at this time related to any lumps masses nodules or pain in her breast. She is not complaining of any nipple discharge or skin changes. She had a bilateral mammogram on 10-27-22 BIRAD 2 Past Surgical History: thyroid cataract wrist right breast Medical History: hypothyroid Detrol for leaking bladder ROS: HEENT: none lungs: none heart: none GI: none : leaking bladder Skin: none Musculoskeletal:none neurologic: none ALLERGIES: As noted Hematologic:none Objective - Vital Signs Vital signs: Vital Signs Temp 98.2 F 11/27/22 15:12 Pulse 73 11/27/22 15:12 Resp 16 11/27/22 15:12 BP 143/80 11/27/22 15:12 Pulse Ox 96 11/27/22 15:12 FiO2 Intake & Output 11/26/22 11/27/22 11/27/22 18:59 06:59 18:59 Weight 68.039 kg - Constitutional General appearance: Present: cooperative - EENT Eyes: Present: EOMI ENT: Present: hearing grossly normal - Neck Neck: Present: normal ROM - Respiratory Respiratory: bilateral: CTA - Cardiovascular Heart sounds: normal: S1, S2 - Integumentary Integumentary: Present: normal turgor - Musculoskeletal Musculoskeletal: Present: gait normal - Psychiatric Psychiatric: Present: A&O x's 3, appropriate affect, intact judgment & insight - Additional findings Additional findings: Breast Exam: BRA: 36B inspection: post treatment changes right breast Palpation: Right breast: Post op and postradiation changes, no dominant masses or nodules of concern Right axilla: No adenopathy of concern Left breast: No dominant masses or nodules of concern, fibrocystic breast changes Left axilla: No adenopathy of concern Assessment and Plan Assessment: Impression: Patient status post right breast lumpectomy and sentinel node biopsy with radiation therapy for stage IA invasive ductal carcinoma. She does not have any chemo or hormonal therapy. Hypothyroid Plan: Patient doing well plan follow-up in 6 months with physician exam at that time CC: David
== END ==
LOC: WWCWWP 15:00
PROVIDERS: ATTEND Surgery
DX: C50.911 Malignant neoplasm of unspecified site of right female breast (principal); E03.9 Hypothyroidism, unspecified; Z85.3 Personal history of malignant neoplasm of breast; Z92.3 Personal history of irradiation; Z88.0 Allergy status to penicillin; Z88.6 Allergy status to analgesic agent; Z91.02 Food additives allergy status; Z79.890 Hormone replacement therapy

== ENCOUNTER → 2023-06-02 | Outpatient (CLI) | payer MEDICARE, BC ==
[2023-06-02 18:14] LABS: Basophils # (A) 0.08 X 10*3/uL (0.00-0.10); Basophils % (A) 1.4 %; Eosinophils % (A) 1.7 %; HCT 44.7 % (37.2-46.3); HGB 14.1 g/dL (12.0-15.0); Lymphocytes # (A) 1.93 X 10*3/uL (0.90-5.00); Lymphocytes % (A) 32.7 %; MCH 30.3 pg (27.0-32.0); MCHC 31.5 g/dL (32.0-37.0); MCV 95.9 FL (80.0-97.0); Mean Platelet Volume 9.7 FL (9.5-12.2); Monocytes # (A) 0.47 X 10*3/uL (0.20-1.00); NRBC Per 100 WBC 0 X 10*3/uL (0.00-0.01); Neutrophils # (A) 3.31 X 10*3/uL (1.80-7.70); Platelet Count 323 X 10*3/uL (140-440); RBC 4.66 X 10*6/uL (4.10-5.20); RDW 13.8 % (11.5-14.5)
[2023-06-02 18:50] LABS: ALT 11 U/L (8-44); AST 19 U/L (13-35); Albumin 4.2 g/dL (3.8-4.9); Albumin/Globulin Ratio 1.35 Ratio (1.60-3.17); Alkaline Phosphatase 71 U/L (41-126); BUN/Creat Ratio 11.23 Ratio (12.00-20.00); Blood Urea Nitrogen 14.6 mg/dL (9.0-27.0); Calcium 9.6 mg/dL (8.7-10.3); Carbon Dioxide 26.2 mmol/L (21.6-31.8); Chloride 102 mmol/L (96-109); Chol/HDL Ratio 5.43 Ratio; Globulin 3.1 g/dL (1.6-3.3); Glucose 101 mg/dL (70-110); LDL Cholesterol,Calculated 192.7 mg/dL (0.0-131.0); Potassium 4.9 mmol/L (3.5-5.5); Sodium 141 mmol/L (135-145); Total Bilirubin 0.5 mg/dL (0.3-1.2); Total Protein 7.3 g/dL (6.2-8.2)
== END | disposition home or self-care (01) ==
LOC: LABWHC1 13:44
PROVIDERS: ATTEND Family Medicine
DX: E78.5 Hyperlipidemia, unspecified (principal)
CPT/HCPCS: 36415; 80053; 80061; 82306; 83036; 84443; 85025

== ENCOUNTER → 2023-06-12 | Outpatient (CLI) | payer MEDICARE, BC ==
--- NOTE | 2023-06-12 09:22 | BD ---
EXAMINATION TYPE: Axial Bone Density DATE OF EXAM: 06/12/2023 CLINICAL HISTORY: 83 years old Female. ICD-10 CODE: N95.1 MENOPAUSAL AND FEMALE CLIMACTERIC STATES Height: 61 Weight: 149 FRAX RISK QUESTIONS: Family History (Parent hip fracture): yes Secondary Osteoporosis: yes 3. Menopause before 45: yes, 40 RISK FACTORS hx of renal disease HISTORY OF: hx of breast ca and thyroid ca, partial removal of thyroid and lumpectomy of RT breast 2019 MEDICATIONS: hx of radiation, vit d and calcium, Thyroid Medications: yes, synthroid product for about 20 yrs, EXAM MEASUREMENTS: Bone mineral densitometry was performed using the Data Driven Delivery System System. Bone mineral density as measured about the Lumbar spine is: ----- L1-L4(G/cm2): 1.255 T Score Values are as follows: ----- L1: 0.5 ----- L2: -0.3 ----- L3: 0.3 ----- L4: 1.7 ----- L1-L4: 0.6 Z Score Values are as follows: ----- L1: 23 ----- L2: 1.5 ----- L3: 2.1 ----- L4: 3.5 ----- L1-L4: 2.4 Bone mineral density has: Increased 1.0% since study of: 04.14.2019 Bone mineral density about the R hip (g/cm2): 0.878 Bone mineral density about the L hip (g/cm2): 0.944 T Score values are as follows: -----R Neck: -1.3 -----L Neck: -0.7 -----R Total: -1.0 -----L Total: -0.5 Z Score values are as follows: -----R Neck: 0.9 -----L Neck: 1.5 -----R Total: 1.0 -----L Total: 1.6 Bone mineral density has: Increased 1.4% since study of: 04.14.2019 FRAX%s: The graph provided illustrates a 29.4% chance for a major osteoporotic fx and a 15.7% chance for the hips probability for fx in 10 years time. IMPRESSION: Normal (Values between +1 and -1 indicate normal bone mass). Consider repeating this study in 5 year s or sooner if there is some new clinical indication. NOTE: T-SCORE=SD OF THE YOUNG ADULT MEAN.
[2023-06-12 10:04] VITALS: BP 137/76; PULSE 80; RESP 17; TEMP 97.8
--- NOTE | 2023-06-12 10:22 | P.PN ---
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 Following this she underwent radiation therapy. She did not have any chemo or hormonal therapy. She did meet with medical oncology, Dr. Singh and opted not to have any further treatment, it was not recommended to her. The patient has no complaints at this time related to any lumps masses nodules or pain in her breast. She is not complaining of any nipple discharge or skin changes. She had a bilateral mammogram on 10-27-22 BIRAD 2 Past Surgical History: thyroid cataract wrist right breast all teeth removed Medical History: hypothyroid Detrol for leaking bladder ROS: HEENT: none lungs: none heart: none GI: none : leaking bladder Skin: none Musculoskeletal:none neurologic: none ALLERGIES: As noted Hematologic:none Objective - Vital Signs Vital signs: Vital Signs Temp 97.8 F 06/12/23 09:48 Pulse 80 06/12/23 09:48 Resp 17 06/12/23 09:48 BP 137/76 06/12/23 09:48 Pulse Ox 96 06/12/23 09:48 FiO2 Intake & Output 06/11/23 06/12/23 06/12/23 18:59 06:59 18:59 Weight 66.678 kg - Constitutional General appearance: Present: cooperative - EENT Eyes: Present: EOMI ENT: Present: hearing grossly normal - Neck Neck: Present: normal ROM - Respiratory Respiratory: bilateral: CTA - Cardiovascular Heart sounds: normal: S1, S2 - Gastrointestinal General gastrointestinal: Present: soft - Integumentary Integumentary: Present: normal - Musculoskeletal Musculoskeletal: Present: gait normal - Psychiatric Psychiatric: Present: A&O x's 3, appropriate affect, intact judgment & insight - Additional findings Additional findings: Breast Exam: BRA: 36B inspection: post treatment changes right breast Palpation: Right breast: Post op and postradiation changes, no dominant masses or nodules of concern, BIOZORB is still palpable in the upper 12:00 area of the breast but decreased in detection Right axilla: No adenopathy of concern Left breast: No dominant masses or nodules of concern, fibrocystic breast changes Left axilla: No adenopathy of concern Assessment and Plan Assessment: Impression: Patient status post right breast lumpectomy and sentinel node biopsy with radiation therapy for stage IA invasive ductal carcinoma. She does not have any chemo or hormonal therapy. Hypothyroid Plan: Bilateral mammogram in October 2023 with appointment at that time CC: David
== END ==
LOC: WWCWWP 08:12
PROVIDERS: ATTEND Surgery
DX: Z90.89 Acquired absence of other organs (principal); Z92.3 Personal history of irradiation; Z88.0 Allergy status to penicillin; Z88.6 Allergy status to analgesic agent; Z91.048 Other nonmedicinal substance allergy status
CPT/HCPCS: 77080

== ENCOUNTER → 2023-06-12 | Outpatient (CLI) | payer MEDICARE, BC | END | disposition home or self-care (01) | LOC: RADBDWWP 08:09 | PROVIDERS: ATTEND Family Medicine | DX: Z53.9 Procedure and treatment not carried out, unspecified reason (principal) ==

== ENCOUNTER → 2023-12-10 | Outpatient (CLI) | payer MEDICARE, BC ==
--- NOTE | 2023-12-11 11:53 | MM ---
Reason for Exam: Screening (asymptomatic). Last mammogram was performed 1 year(s) and 2 month(s) ago. Patient History: Menarche at age 13. First Full-Term at age 19. Left ovary removed at age 39. Right ovary removed at age 39. Hysterectomy at age 39. Postmenopausal. Other cancer, age 60. Breast cancer, right, age 78. Estrogen for 10 years from age 39 until age 49. 08/17/2018, Lumpectomy on the Right side. 08/17/2018, Malignant Core Biopsy on the right side. 06/28/2018, Malignant Core Biopsy on the right side. 06/23/2008, Benign Core Biopsy on the left side. 2019, Bilateral Radiation Therapy. Maternal cousin had breast cancer, age 60. Maternal aunt had breast cancer, age 60. Prior Study Comparison: 03/27/2021 Right Diagnostic Mammogram, [facility]. 09/25/2021 Bilateral MG 3D diag mammo w/cad VIC, [facility]. 10/27/2022 Bilateral MG 3D diag mammo w/cad VIC, [facility]. Tissue Density: There are scattered areas of fibroglandular density. Findings: Analyzed By CAD. Right breast surgical clips. Right breast: There is no suspicious group of microcalcifications or new suspicious mass. Benign-appearing calcifications right breast. Left breast: There is no suspicious group of microcalcifications or new suspicious mass. Benign-appearing calcifications left breast. Overall Assessment: Benign, BI-RAD 2 Management: Screening Mammogram of both breasts in [address] [facility] will attempt to contact patient to return for supplemental views and ultrasound if indicated. Patient should continue monthly self-breast exams. A clinical breast exam by your physician is recommended on an annual basis. This exam should not preclude additional follow-up of suspicious palpable abnormalities. Note on Karmen scores and lifetime risk: 1. A Karmen score greater than 3% is considered moderate risk. If this is the case, consider specialist referral to assess eligibility for a risk reducing agent. 2. If overall lifetime risk for the development of breast cancer is 20% or higher, the patient may qualify for future screening with alternating mammogram and breast MRI. [facility], , 12/11/2023 11:49 AM. Electronically signed and approved by: Nate Cameron DO
== END | disposition home or self-care (01) ==
LOC: RADMAMWWP 14:03
PROVIDERS: ATTEND Surgery
DX: Z12.31 Encounter for screening mammogram for malignant neoplasm of breast
CPT/HCPCS: 77063; 77067

== ENCOUNTER → 2023-12-16 | Outpatient (CLI) | payer MEDICARE, BC ==
[2023-12-16 10:40] VITALS: BP 137/91; PULSE 97; RESP 16; TEMP 97.9
--- NOTE | 2023-12-16 11:21 | P.PN ---
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 Following this she underwent radiation therapy. She did not have any chemo or hormonal therapy. She did meet with medical oncology, Dr. Singh and opted not to have any further treatment, it was not recommended to her. The patient has no complaints at this time related to any lumps masses nodules or pain in her breast. She is not complaining of any nipple discharge or skin changes. The area of the BioSorb in the right breast is resolving. She had a bilateral mammogram on 12-10-23 BIRAD 2, this was personally interpreted and reviewed She is complaining of vertigo for the past three weeks Past Surgical History: thyroid cataract wrist right breast all teeth removed Medical History: hypothyroid Detrol for leaking bladder vertigo past three weeks ROS: HEENT: none lungs: none heart: none GI: none : leaking bladder Skin: none Musculoskeletal:none neurologic: none ALLERGIES: As noted Hematologic:none Objective - Vital Signs Vital signs: Vital Signs Temp 97.9 F 12/16/23 10:38 Pulse 97 12/16/23 10:38 Resp 16 12/16/23 10:38 BP 137/91 12/16/23 10:38 Pulse Ox 98 12/16/23 10:38 FiO2 Intake & Output 12/15/23 12/16/23 12/16/23 18:59 06:59 18:59 Weight 64.864 kg - Constitutional General appearance: Present: cooperative - EENT Eyes: Present: EOMI ENT: Present: hearing grossly normal - Neck Neck: Present: normal ROM - Respiratory Respiratory: bilateral: CTA - Cardiovascular Rhythm: regular Heart sounds: normal: S1, S2 - Integumentary Integumentary: Present: normal turgor - Musculoskeletal Musculoskeletal: Present: gait normal - Psychiatric Psychiatric: Present: A&O x's 3, appropriate affect, intact judgment & insight - Additional findings Additional findings: Breast Exam: BRA: 36B inspection: post treatment changes right breast Palpation: Right breast: Post op and postradiation changes, no dominant masses or nodules of concern, BIOZORB is still palpable in the upper 12:00 area of the breast but decreased in detection Right axilla: No adenopathy of concern Left breast: No dominant masses or nodules of concern, fibrocystic breast changes Left axilla: No adenopathy of concern Assessment and Plan Assessment: Impression: Patient status post right breast lumpectomy and sentinel node biopsy with radiation therapy for stage IA invasive ductal carcinoma. She did not have any chemo or hormonal therapy. Hypothyroid Plan: Bilateral mammogram December 2024 with appointment at that time CC: David
== END ==
LOC: WWCWWP 09:55
PROVIDERS: ATTEND Surgery
DX: Z85.3 Personal history of malignant neoplasm of breast

== ENCOUNTER → 2024-06-22 | Outpatient (CLI) | payer MEDICARE, BC ==
[2024-06-22 18:08] LABS: Basophils # (A) 0.07 X 10*3/uL (0.00-0.10); Basophils % (A) 1.2 %; Eosinophils # (A) 0.08 X 10*3/uL (0.04-0.35); Eosinophils % (A) 1.4 %; HCT 43.9 % (37.2-46.3); HGB 13.9 g/dL (12.0-15.0); Lymphocytes # (A) 1.74 X 10*3/uL (0.90-5.00); Lymphocytes % (A) 30.7 %; MCHC 31.7 g/dL (32.0-37.0); MCV 94.6 FL (80.0-97.0); Mean Platelet Volume 9.5 FL (9.5-12.2); Monocytes # (A) 0.53 X 10*3/uL (0.20-1.00); Monocytes % (A) 9.4 %; NRBC Per 100 WBC 0 X 10*3/uL (0.00-0.01); Neutrophils # (A) 3.22 X 10*3/uL (1.80-7.70); Neutrophils % (A) 56.9 %; Platelet Count 324 X 10*3/uL (140-440); RBC 4.64 X 10*6/uL (4.10-5.20); RDW 13.2 % (11.5-14.5); WBC 5.66 X 10*3/uL (4.50-10.00)
[2024-06-22 20:14] LABS: ALT 11 U/L (8-44); AST 24 U/L (13-35); Albumin/Globulin Ratio 1.38 Ratio (1.60-3.17); Alkaline Phosphatase 65 U/L (41-126); Blood Urea Nitrogen 13.2 mg/dL (9.0-27.0); Calcium 9.6 mg/dL (8.7-10.3); Carbon Dioxide 27.5 mmol/L (21.6-31.8); Chloride 104 mmol/L (96-109); Chol/HDL Ratio 4.83 Ratio; Globulin 2.9 g/dL (1.6-3.3); Glucose 90 mg/dL (70-110); LDL Cholesterol,Calculated 177.8 mg/dL (0.0-131.0); Potassium 4.7 mmol/L (3.5-5.5); Sodium 140 mmol/L (135-145); Total Bilirubin 0.5 mg/dL (0.3-1.2); Total Protein 6.9 g/dL (6.2-8.2)
== END | disposition home or self-care (01) ==
LOC: LABWHC1 14:00
PROVIDERS: ATTEND Family Medicine
DX: Z00.00 Encounter for general adult medical examination without abnormal findings (principal)
CPT/HCPCS: 36415; 80053; 80061; 82306; 83036; 84443; 85025

== ENCOUNTER → 2024-07-16 | Outpatient (CLI) | payer MEDICARE, BC ==
[2024-07-17 07:14] LABS: Basophils # (A) 0.09 X 10*3/uL (0.00-0.10); Basophils % (A) 1.2 %; Eosinophils # (A) 0.25 X 10*3/uL (0.04-0.35); Eosinophils % (A) 3.4 %; HCT 44.7 % (37.2-46.3); HGB 14.1 g/dL (12.0-15.0); Lymphocytes # (A) 2.74 X 10*3/uL (0.90-5.00); Lymphocytes % (A) 37.8 %; MCH 29.6 pg (27.0-32.0); MCHC 31.5 g/dL (32.0-37.0); MCV 93.9 FL (80.0-97.0); Mean Platelet Volume 9.4 FL (9.5-12.2); Monocytes # (A) 0.69 X 10*3/uL (0.20-1.00); Monocytes % (A) 9.5 %; NRBC Per 100 WBC 0 X 10*3/uL (0.00-0.01); Neutrophils # (A) 3.41 X 10*3/uL (1.80-7.70); Neutrophils % (A) 47.1 %; Platelet Count 447 X 10*3/uL (140-440); RBC 4.76 X 10*6/uL (4.10-5.20); RDW 13.2 % (11.5-14.5); WBC 7.25 X 10*3/uL (4.50-10.00)
[2024-07-17 08:02] LABS: BUN/Creat Ratio 12.08 Ratio (12.00-20.00); Blood Urea Nitrogen 15.7 mg/dL (9.0-27.0); Calcium 9.4 mg/dL (8.7-10.3); Carbon Dioxide 26.5 mmol/L (21.6-31.8); Chloride 101 mmol/L (96-109); Glucose 93 mg/dL (70-110); Sodium 140 mmol/L (135-145); Uric Acid 8.2 mg/dL (2.9-7.7)
== END | disposition home or self-care (01) ==
LOC: LABWHC1 11:16
DX: M10.9 Gout, unspecified (principal); L03.115 Cellulitis of right lower limb
CPT/HCPCS: 36415; 80048; 84550; 85025

== ENCOUNTER → 2024-09-02 | Outpatient (CLI) | payer MEDICARE, BC ==
--- NOTE | 2024-09-02 15:07 | US ---
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 SIDE PERFORMED: Bilateral FINDINGS: VESSELS IMAGED: Common Femoral Vein Deep Femoral Vein Greater Saphenous Vein * Femoral Vein Popliteal Vein Small Saphenous Vein * Proximal Calf Veins (* superficial vessels) Right Leg: No evidence for DVT, Color Doppler imaging shows patency of the vessels. Spectral wavefor ms are within normal limits. Left Leg: No evidence for DVT, Color Doppler imaging shows patency of the vessels. Spectral waveform s are within normal limits. IMPRESSION: No evidence for DVT within the bilateral lower extremities imaged from the groin to the upper calves. [facility], Workstation: [employer], 09/02/2024 3:04 PM
== END | disposition home or self-care (01) ==
LOC: RADUSWWP 14:23
PROVIDERS: ATTEND Family Medicine
DX: M10.9 Gout, unspecified (principal)
CPT/HCPCS: 93970